=== PATIENT | female | born 1965 | race Caucasian/White ===

== ENCOUNTER → 2018-05-07 02:53 | Outpatient (RCR) | payer BC, SELFPAY ==
[2018-04-23] MEDS: Normal Saline Flush 10 ML SYR IVP (09:35)
[2018-04-23 09:56] LABS: Abs Immature Grans 0.02 k/cumm (0.0-0.09); Absolute Basophil Count 0.02 k/cumm (0.0-0.2); Absolute Eosinophil Count 0.26 k/cumm (0.0-0.7); Absolute Lymphocyte Count 0.63 k/cumm (1.2-3.4); Absolute Monocyte Count 1.17 k/cumm (0.11-0.7); Basophils % 0.3; HCT 30.8 % (36.0-46.0); HGB 10.1 g/dL (12.0-15.5); Immature Grans % 0.3; Lymphocytes % 9.7; Mean Corp. HGB Concentration 32.8 g/dL (32.0-36.0); Mean Corpuscular Hemoglobin 31.9 pg (27.0-33.0); Mean Corpuscular Volume 97.2 fL (80-95); Mean Platelet Volume 9.5 fL (8.0-11.0); Neutrophils % 67.7; Platelet Count 292 x1000/uL (130-400); RBC 3.17 m/cumm (4.00-5.20); RBC Distribution Width 15.5 % (11.7-14.6)
[2018-04-23 10:14] LABS: ALT 16 U/L (12-78); AST 11 U/L (15-37); Albumin 2.4 g/dL (3.4-5.0); Alkaline Phosphatase 76 U/L (46-116); Anion Gap 4.4 mmol/L (3-11); BUN 6 mg/dL (7-18); Bilirubin, Total 0.2 mg/dL (0.2-1.0); CO2 33.6 mmol/L (21.0-32.0); CREATININE 0.37 mg/dL (0.55-1.02); Calcium 8.2 mg/dL (8.5-10.1); Chloride 98 mmol/L (98-107); Glucose 106 mg/dL (70-100); Sodium 136 mmol/L (136-145); Total Protein 6.5 g/dL (6.4-8.2)
[2018-04-23 10:23] LABS: Potassium 2.8 mmol/L (3.5-5.1)
[2018-04-23 11:50] LABS: Magnesium 1.7 mg/dL (1.8-2.4)
[2018-04-30] MEDS: Normal Saline Flush 10 ML SYR IVP (09:36)
[2018-04-30 10:02] LABS: Abs Immature Grans 0.02 k/cumm (0.0-0.09); Absolute Basophil Count 0.01 k/cumm (0.0-0.2); Absolute Eosinophil Count 0.13 k/cumm (0.0-0.7); Absolute Lymphocyte Count 0.31 k/cumm (1.2-3.4); Absolute Monocyte Count 0.91 k/cumm (0.11-0.7); Absolute Neutrophil Count 2.73 k/cumm (1.2-6.7); Basophils % 0.2; Eosinophils % 3.2; HCT 34.4 % (36.0-46.0); HGB 11.2 g/dL (12.0-15.5); Immature Grans % 0.5; Lymphocytes % 7.5; Mean Corp. HGB Concentration 32.6 g/dL (32.0-36.0); Mean Corpuscular Hemoglobin 32.1 pg (27.0-33.0); Mean Corpuscular Volume 98.6 fL (80-95); Mean Platelet Volume 9.6 fL (8.0-11.0); Monocytes % 22.1; Neutrophils % 66.5; Platelet Count 283 x1000/uL (130-400); RBC 3.49 m/cumm (4.00-5.20); RBC Distribution Width 16.7 % (11.7-14.6); White Blood Cell Count 4.11 k/cumm (4.4-10.8)
[2018-04-30 10:13] LABS: ALT 21 U/L (12-78); AST 11 U/L (15-37); Albumin 2.3 g/dL (3.4-5.0); Alkaline Phosphatase 100 U/L (46-116); Anion Gap 4.8 mmol/L (3-11); BUN 6 mg/dL (7-18); Bilirubin, Total 0.2 mg/dL (0.2-1.0); CO2 34.2 mmol/L (21.0-32.0); CREATININE 0.36 mg/dL (0.55-1.02); Calcium 8.5 mg/dL (8.5-10.1); Chloride 96 mmol/L (98-107); Glucose 115 mg/dL (70-100); Potassium 3.8 mmol/L (3.5-5.1); Sodium 135 mmol/L (136-145); Total Protein 6.6 g/dL (6.4-8.2)
[2018-05-07 07:59] LABS: Abs Immature Grans 0.01 k/cumm (0.0-0.09); Absolute Basophil Count 0.03 k/cumm (0.0-0.2); Absolute Eosinophil Count 0.43 k/cumm (0.0-0.7); Absolute Lymphocyte Count 0.25 k/cumm (1.2-3.4); Absolute Monocyte Count 1.06 k/cumm (0.11-0.7); Absolute Neutrophil Count 3.32 k/cumm (1.2-6.7); Basophils % 0.6; Eosinophils % 8.4; HGB 12.1 g/dL (12.0-15.5); Immature Grans % 0.2; Lymphocytes % 4.9; Mean Corp. HGB Concentration 32.7 g/dL (32.0-36.0); Mean Corpuscular Hemoglobin 33.3 pg (27.0-33.0); Mean Corpuscular Volume 101.9 fL (80-95); Mean Platelet Volume 9.8 fL (8.0-11.0); Monocytes % 20.8; Neutrophils % 65.1; Platelet Count 248 x1000/uL (130-400); RBC 3.63 m/cumm (4.00-5.20); RBC Distribution Width 19.6 % (11.7-14.6)
[2018-05-07 08:11] LABS: ALT 24 U/L (12-78); AST 11 U/L (15-37); Albumin 2.3 g/dL (3.4-5.0); Alkaline Phosphatase 111 U/L (46-116); Anion Gap 3.4 mmol/L (3-11); BUN 6 mg/dL (7-18); Bilirubin, Total 0.3 mg/dL (0.2-1.0); CO2 34.6 mmol/L (21.0-32.0); CREATININE 0.61 mg/dL (0.55-1.02); Calcium 8.3 mg/dL (8.5-10.1); Chloride 98 mmol/L (98-107); Glucose 153 mg/dL (70-100); Potassium 3.8 mmol/L (3.5-5.1); Sodium 136 mmol/L (136-145); Total Protein 6.3 g/dL (6.4-8.2)
[2018-05-07] MEDS: Normal Saline Flush 10 ML SYR IVP (09:41)
== END ==
LOC: INF 04-15 03:34
PROVIDERS: PCP Internal Medicine; Visit Provider Internal Medicine Hematology & Oncology
DX: C21.0 Malignant neoplasm of anus, unspecified (principal); Z45.2 Encounter for adjustment and management of vascular access device
CPT/HCPCS: 36592; 80053; 83735; 85025

== ENCOUNTER 2018-05-31 13:33 | Observation (INO) | payer BC, SELFPAY ==
[2018-05-31 13:13] VITALS: BP 113/80; PULSE 117; RESP 17; TEMP 37.2; O2SAT 90
[2018-05-31 13:31] VITALS: BP 113/80; PULSE 117; RESP 17; TEMP 37.2; O2SAT 90
[2018-05-31] MEDS: Normal Saline 1,000 ML 75 ML IV (14:44)
[2018-05-31] MEDS: Normal Saline Flush 10 ML SYR IVP ×2 (14:44→17:19)
[2018-05-31 15:55] VITALS: BP 143/79; PULSE 119; RESP 18; TEMP 37; O2SAT 88
[2018-05-31] MEDS: HYDROmorphone 4 MG TAB PO (16:15)
--- NOTE | 2018-05-31 16:15 | NS.NUTBLAN_ITS ---
TPN recommendations. Full assessment to follow. These recommendations are based on following my conversation with the RD at the [facility]. Ms. Ann is 68 and 50.5 kg. Her BMI is only 16 kg/m2 consistent with underweight. Recommend the following TPN solution to start. Also would recommend watching for refeeding syndrome as Ms. Ann has been eating only 500 calories per day or less for several weeks per her report and per RD at [facility]. Recommend: 2.0 liters of amino acid 4.25% in 10% dextrose over 24 hours. Also 250 ml of 20 % fat emulsion over 8 hours daily. Will follow up with full assessment and will monitor her progress and tolerance to PO and/or nutrition support. Thank you for the consult.
--- NOTE | 2018-05-31 17:45 | W.PM.HP.N ---
Date of service: 05/31/18 Time of Service: 17:45 Assessment and Plan (1) Malnourished: Current visit: Yes Status: Acute Secondary to loss of appetite, attributed to chemo, with poor po intake. Initiating TPN. Surgical and double corner cutter input appreciated. (2) Squamous cell carcinoma of rectum: Current visit: Yes Status: Acute Diagnosed or 03/2018, undergone treatment with Mitomycin and Capecitabine with concurrent radiation therapy. Completed course 05/25/2018. (3) Hypertension: Current visit: Yes Status: Chronic (4) Asthma: Current visit: Yes Status: Chronic Diagnosis in patient with daily and significant tobacco use - likely component of COPD as well. Continue home inhaler thereapy, duonebs prn. (5) Fibromyalgia: Current visit: Yes Status: Acute Noted. Continue Gabapentin. (6) DVT prophylaxis: Current visit: Yes Status: Acute SC Lovenox ordered but refused by patient. Risks explained in detail - patient is aware. History of Present Illness Narrative: 52-year-old woman with a past medical history significant for rectal Ca, asthma and fibromyalgia presents to to [facility] as a direct admission from [facility] for initiation of TPN. Mrs. Ann has a history of squamous cell CA of rectum. She was initiated on chemotherapy with concurrent radiation in early April of this year, and has undergone therapy with mitomycin C and oral capecitabine along with XRT. During this time she is noted a decrease in her oral intake secondary to a loss of appetite, along with a concurrent significant weight loss. Patient was referred for admission for initiation of TPN. She already has PICC line in place. Review of Systems Review of Systems Reported weight loss secondary to lack of appetite and decreased oral intake. Pertinent positives include chronic, unchanged, ongoing dyspnea with subjective wheezing that is expressed to be at baseline. No complaints of abdominal pain or constipation, although with a bout of constipation in the past and patient on chronic opiate therapy. All review of systems otherwise are essentially negative. [facility] Social History Smoking/Tobacco Use Status: Current every day Meds Home Medications Medication Instructions Recorded Confirmed Type albuterol sulfate 2 puff INHALATION Q6H PRN 05/31/18 05/31/18 History bisoprolol fumarate 5 mg PO DAILY 05/31/18 05/31/18 History budesonide 0.5 mg INHALATION BID 05/31/18 05/31/18 History gabapentin 300 mg PO TID 05/31/18 05/31/18 History hydrocortisone 1 applic TOPICAL BID 05/31/18 05/31/18 History hydromorphone 4 mg PO PRN PRN 05/31/18 05/31/18 History ipratropium-albuterol 3 ml INHALATION QID 05/31/18 05/31/18 History ketoconazole 1 applic TOPICAL BID 05/31/18 05/31/18 History lidocaine 1 applic TOPICAL BID 05/31/18 05/31/18 History loperamide 2 mg PO Q6H PRN PRN 05/31/18 05/31/18 History lorazepam 0.5 mg PO Q4H PRN PRN 05/31/18 05/31/18 History milnacipran 50 mg PO BID 05/31/18 05/31/18 History morphine 60 mg PO Q8H 05/31/18 05/31/18 History subeekop-fkcxdmdvnMc-flosnklcJ 1 applic TOPICAL BID 05/31/18 05/31/18 History [Neosporin (nxa-ovu-zuhrm)] ondansetron 8 mg PO TID PRN 05/31/18 05/31/18 History potassium chloride 20 meq PO DAILY 05/31/18 05/31/18 History prochlorperazine maleate 10 mg PO Q6H PRN PRN 05/31/18 05/31/18 History sennosides [senna] 8.6 mg PO BID PRN 05/31/18 05/31/18 History silver sulfadiazine 1 applic TOPICAL BID 05/31/18 05/31/18 History Allergies Allergy/AdvReac Type Severity Reaction Status Date / Time Latex, Natural Rubber Allergy Intermediate Hives Unverified 05/31/18 13:55 animal dander AdvReac Mild Other (See Unverified 05/31/18 13:55 Comment) perfume AdvReac Mild Other (See Unverified 05/31/18 13:55 Comment) pollen extracts AdvReac Mild Other (See Unverified 05/31/18 13:55 Comment) Exam Narrative Exam Narrative: General: Patient appears comfortable, sitting up in bed, AAOX3, NAD. Thin and malnurished. Neck: Supple CV: Regular, nontachycardic, S1S2, No rubs, murmurs, or gallops. Pulmonary: Clear to auscultation bilaterally, no crackles, or rhonchi. Minimal bibasilar wheezes noted. Abdomen: + Bowel Sounds, soft, nontender, nondistended Vascular: No lower extremity edema Neurologic: CN II-XII grossly intact. No focal deficits. Psych: Normal mood and affect.
--- NOTE | 2018-05-31 17:50 | HPE_ITS ---
Date of service: 05/31/18 Time of Service: 17:45 Assessment and Plan (1) Malnourished: Current visit: Yes Status: Acute Secondary to loss of appetite, attributed to chemo, with poor po intake. Initiating TPN. Surgical and hims clerk input appreciated. (2) Squamous cell carcinoma of rectum: Current visit: Yes Status: Acute Diagnosed or 03/2018, undergone treatment with Mitomycin and Capecitabine with concurrent radiation therapy. Completed course 05/25/2018. (3) Hypertension: Current visit: Yes Status: Chronic (4) Asthma: Current visit: Yes Status: Chronic Diagnosis in patient with daily and significant tobacco use - likely component of COPD as well. Continue home inhaler thereapy, duonebs prn. (5) Fibromyalgia: Current visit: Yes Status: Acute Noted. Continue Gabapentin. (6) DVT prophylaxis: Current visit: Yes Status: Acute SC Lovenox ordered but refused by patient. Risks explained in detail - patient is aware. History of Present Illness Narrative: 52-year-old woman with a past medical history significant for rectal Ca, asthma and fibromyalgia presents to to [facility] as a direct admission from [facility] for initiation of TPN. Mrs. Ann has a history of squamous cell CA of rectum. She was initiated on chemotherapy with concurrent radiation in early April of this year, and has undergone therapy with mitomycin C and oral capecitabine along with XRT. During this time she is noted a decrease in her oral intake secondary to a loss of appetite, along with a concurrent significant weight loss. Patient was referred for admission for initiation of TPN. She already has PICC line in place. Review of Systems Review of Systems Reported weight loss secondary to lack of appetite and decreased oral intake. Pertinent positives include chronic, unchanged, ongoing dyspnea with subjective wheezing that is expressed to be at baseline. No complaints of abdominal pain or constipation, although with a bout of constipation in the past and patient on chronic opiate therapy. All review of systems otherwise are essentially negative. [facility] Social History Smoking/Tobacco Use Status: Current every day Meds Home Medications Medication Instructions Recorded Confirmed Type albuterol sulfate 2 puff INHALATION Q6H PRN 05/31/18 05/31/18 History bisoprolol fumarate 5 mg PO DAILY 05/31/18 05/31/18 History budesonide 0.5 mg INHALATION BID 05/31/18 05/31/18 History gabapentin 300 mg PO TID 05/31/18 05/31/18 History hydrocortisone 1 applic TOPICAL BID 05/31/18 05/31/18 History hydromorphone 4 mg PO PRN PRN 05/31/18 05/31/18 History ipratropium-albuterol 3 ml INHALATION QID 05/31/18 05/31/18 History ketoconazole 1 applic TOPICAL BID 05/31/18 05/31/18 History lidocaine 1 applic TOPICAL BID 05/31/18 05/31/18 History loperamide 2 mg PO Q6H PRN PRN 05/31/18 05/31/18 History lorazepam 0.5 mg PO Q4H PRN PRN 05/31/18 05/31/18 History milnacipran 50 mg PO BID 05/31/18 05/31/18 History morphine 60 mg PO Q8H 05/31/18 05/31/18 History wmgdhsho-xdhehioddCo-vjwmihlrU 1 applic TOPICAL BID 05/31/18 05/31/18 History [Neosporin (smm-qjo-cfzdu)] ondansetron 8 mg PO TID PRN 05/31/18 05/31/18 History potassium chloride 20 meq PO DAILY 05/31/18 05/31/18 History prochlorperazine maleate 10 mg PO Q6H PRN PRN 05/31/18 05/31/18 History sennosides [senna] 8.6 mg PO BID PRN 05/31/18 05/31/18 History silver sulfadiazine 1 applic TOPICAL BID 05/31/18 05/31/18 History Allergies Allergy/AdvReac Type Severity Reaction Status Date / Time Latex, Natural Rubber Allergy Intermediate Hives Unverified 05/31/18 13:55 animal dander AdvReac Mild Other (See Unverified 05/31/18 13:55 Comment) perfume AdvReac Mild Other (See Unverified 05/31/18 13:55 Comment) pollen extracts AdvReac Mild Other (See Unverified 05/31/18 13:55 Comment) Exam Narrative Exam Narrative: General: Patient appears comfortable, sitting up in bed, AAOX3, NAD. Thin and malnurished. Neck: Supple CV: Regular, nontachycardic, S1S2, No rubs, murmurs, or gallops. Pulmonary: Clear to auscultation bilaterally, no crackles, or rhonchi. Minimal bibasilar wheezes noted. Abdomen: + Bowel Sounds, soft, nontender, nondistended Vascular: No lower extremity edema Neurologic: CN II-XII grossly intact. No focal deficits. Psych: Normal mood and affect.
[2018-05-31] MEDS: Enoxaparin 40 MG/0.4 ML SYR SC (18:44)
[2018-05-31] MEDS: Gabapentin 300 MG CAP PO (20:09)
[2018-05-31] MEDS: Albuterol/Ipratropium 3 ML UPD VIAL IH (20:10)
[2018-05-31] MEDS: Budesonide 0.5 MG/2 ML UPD VIAL IH (20:10)
--- NOTE | 2018-05-31 20:15 | NUR.NOTE ---
Nursing Note: Patient refused all PM creams, states that she has her own at home, and states that they have to be mixed a special way. RN attempted to educate patient and , however patient still declines.
[2018-05-31 21:04] VITALS: BP 123/79; PULSE 96; RESP 20; TEMP 36; O2SAT 90
[2018-06-01] VITALS (11 sets, daily range): BP systolic 110–158; BP diastolic 74–90; PULSE 97–110; RESP 1–22; TEMP 36–37.1; O2SAT 83–98
[2018-06-01] MEDS: HYDROmorphone 4 MG TAB PO ×3 (03:04→14:34)
[2018-06-01 07:32] LABS: Abs Immature Grans 0.01 k/cumm (0.0-0.09); Absolute Basophil Count 0.01 k/cumm (0.0-0.2); Absolute Eosinophil Count 0.01 k/cumm (0.0-0.7); Absolute Lymphocyte Count 0.34 k/cumm (1.2-3.4); Absolute Monocyte Count 0.82 k/cumm (0.11-0.7); Absolute Neutrophil Count 3.02 k/cumm (1.2-6.7); Basophils % 0.2; Eosinophils % 0.2; HCT 32.7 % (36.0-46.0); HGB 11.2 g/dL (12.0-15.5); Immature Grans % 0.2; Lymphocytes % 8.1; Mean Corp. HGB Concentration 34.3 g/dL (32.0-36.0); Mean Corpuscular Hemoglobin 34.9 pg (27.0-33.0); Mean Corpuscular Volume 101.9 fL (80-95); Mean Platelet Volume 10.4 fL (8.0-11.0); Monocytes % 19.5; Neutrophils % 71.8; Platelet Count 110 x1000/uL (130-400); RBC 3.21 m/cumm (4.00-5.20); RBC Distribution Width 21.1 % (11.7-14.6); White Blood Cell Count 4.21 k/cumm (4.4-10.8)
[2018-06-01 07:42] LABS: INR 1.1 (1.0-3.5); Prothrombin Time 10.9 sec (9.3-10.8)
[2018-06-01] MEDS: Budesonide 0.5 MG/2 ML UPD VIAL IH ×2 (07:43→19:22)
[2018-06-01] MEDS: Albuterol/Ipratropium 3 ML UPD VIAL IH ×4 (07:43→19:22)
[2018-06-01 07:58] LABS: ALT 20 U/L (12-78); AST 11 U/L (15-37); Albumin 1.8 g/dL (3.4-5.0); Alkaline Phosphatase 95 U/L (46-116); Anion Gap 2.1 mmol/L (3-11); BUN 17 mg/dL (7-18); Bilirubin, Total 0.2 mg/dL (0.2-1.0); CO2 35.9 mmol/L (21.0-32.0); CREATININE 0.35 mg/dL (0.55-1.02); Calcium 8.1 mg/dL (8.5-10.1); Chloride 97 mmol/L (98-107); Glucose 104 mg/dL (70-100); Magnesium 1.8 mg/dL (1.8-2.4); PHOSPHORUS 2.7 mg/dL (2.6-4.7); Sodium 135 mmol/L (136-145); Total Protein 5.6 g/dL (6.4-8.2)
[2018-06-01] MEDS: Bisoprolol 5 MG TAB PO (08:00)
[2018-06-01] MEDS: Gabapentin 300 MG CAP PO ×2 (08:00→14:34)
[2018-06-01] MEDS: Potassium Chloride 10 MEQ TABCR 20 MEQ PO (08:02)
--- NOTE | 2018-06-01 08:10 | NUR.NOTE ---
Nursing Note: Pt offered 5 different ointments and creams that were ordered on NOV. She declined them all stating she can't get them right now at home. Nursing explained that we have them here in house and as long as they were ordered on her discharge home medication list she would be able to bring them home with her. Pt refused stating she can't deal with it right now. Nursing asked Pt to let staff know if she changed her mind about the medications.
[2018-06-01] MEDS: Magnesium Oxide 400 MG TAB PO (10:06)
[2018-06-01] MEDS: Insulin Aspart 300 UNITS/3 ML PEN SC ×2 (12:27→18:02)
--- NOTE | 2018-06-01 14:05 | PDOC.CMIN ---
Care Management Initial Assess REASON FOR HOSPITALIZATION:: Malnutrition PAST MEDICAL HISTORY/PAST SURGICAL HISTORY:: DVT prophylaxis, fibromyalgia, asthma, hypertension, squamous cell carcinoma of the rectum, current everyday smoker PREVIOUS FUNCTIONAL STATUS/SOCIAL/FAMILY SUPPORTS:: Katarina resides with her , Dat in [place], [place]. She recently completed chemo and radiation at [facility] and has a follow up appointment with Dr. He tomorrow around noon. CM notified first officer at [facility]; Delmy who reported Katarina's appointment was for a skin check due to radiation, and that this information could be relayed to MED/SURG MD. Delmy reported she would cancel Katarina's appointment for tomorrow. CURRENT FUNCTIONAL STATUS:: Katarina was lying in bed, her at her bedside when CM met with her. She was reserved, but pleasant in interaction. ADVANCE DIRECTIVES:: None on file. Has patient been provided with information about the portal?: No Did the patient sign up for the portal?: No CODE STATUS:: Full Code INSURANCE COVERAGE / FINANCIAL ISSUES:: BC Other CURRENT HOME/COMMUNITY SERVICES/EQUIPMENT:: [facility]: former chemo and radiation. O2, PICC line and home health RN through [facility]. PRIMARY CARE PHYSICIAN:: Mo Hendrickson POTENTIAL DISCHARGE NEEDS:: Communication with [facility]. Coordination with [facility] of TPN supplies, [facility]: [facility]-new orders and resumption of RN. [facility] notification of inpatient status. PATIENT/FAMILY EDUCATION NEEDS:: Review of discharge instructions, discussion around needs; review of DME providers and process for [facility] formula for TPN. ANTICIPATED BARRIERS TO DISCHARGE:: Coordination of services needed upon discharge. TRANSPORTATION:: Via private vehicle with her . PLAN:: Katarina will return home when ready per . She will follow up with her outpatient providers and have new orders for VNA/RN with new orders for TPN supplies through [facility]-coordinated by and this telegraphic typewriter mechanic. PETE faxed referral to Tyesha at [facility]: F# . PETE will continue to support discharge planning considerations.
[2018-06-01] MEDS: Enoxaparin 40 MG/0.4 ML SYR SC (14:35)
--- NOTE | 2018-06-01 15:00 | INITIAL_ITS ---
Care Management Initial Assess REASON FOR HOSPITALIZATION:: Malnutrition PAST MEDICAL HISTORY/PAST SURGICAL HISTORY:: DVT prophylaxis, fibromyalgia, asthma, hypertension, squamous cell carcinoma of the rectum, current everyday smoker PREVIOUS FUNCTIONAL STATUS/SOCIAL/FAMILY SUPPORTS:: Katarina resides with her , Dat in [place], [place]. She recently completed chemo and radiation at [facility] and has a follow up appointment with Dr. He tomorrow around noon. CM notified probation officer at [facility]; Delmy who reported Katarina's appointment was for a skin check due to radiation, and that this information could be relayed to MED/SURG MD. Delmy reported she would cancel Katarina's appointment for tomorrow. CURRENT FUNCTIONAL STATUS:: Katarina was lying in bed, her at her bedside when CM met with her. She was reserved, but pleasant in interaction. ADVANCE DIRECTIVES:: None on file. Has patient been provided with information about the portal?: No Did the patient sign up for the portal?: No CODE STATUS:: Full Code INSURANCE COVERAGE / FINANCIAL ISSUES:: BC Other CURRENT HOME/COMMUNITY SERVICES/EQUIPMENT:: [facility]: former chemo and radiation. O2 , PICC line and home health RN through [facility]. PRIMARY CARE PHYSICIAN:: Mo Hendrickson POTENTIAL DISCHARGE NEEDS:: Communication with [facility]. Coordination with [facility] of TPN supplies, [facility]: [facility]-new orders and resumption of RN. [facility] notification of inpatient status. PATIENT/FAMILY EDUCATION NEEDS:: Review of discharge instructions, discussion around needs; review of DME providers and process for [facility] formula for TPN. ANTICIPATED BARRIERS TO DISCHARGE:: Coordination of services needed upon discharge. TRANSPORTATION:: Via private vehicle with her . PLAN:: Katarina will return home when ready per . She will follow up with her outpatient providers and have new orders for VNA/RN with new orders for TPN supplies through [facility]-coordinated by and this property underwriter. PETE faxed referral to Tyesha at [facility]: F# . PETE will continue to support discharge planning considerations.
--- NOTE | 2018-06-01 17:01 | W.PM.PROGNOT ---
Date of service: 06/01/18 Time of Service: 17:02 Assessment and Plan (1) Malnourished: Current visit: Yes Status: Acute Secondary to loss of appetite, attributed to chemo, with poor po intake. Initiating TPN. Surgical and host/hostess head input appreciated. (2) Squamous cell carcinoma of rectum: Current visit: Yes Status: Acute Diagnosed or 03/2018, undergone treatment with Mitomycin and Capecitabine with concurrent radiation therapy. Completed course 05/25/2018. (3) Hypertension: Current visit: Yes Status: Chronic (4) Asthma: Current visit: Yes Status: Chronic Diagnosis in patient with daily and significant tobacco use - likely component of COPD as well. Patient with wheezing and hypoxia, reportedly chronic by both patient and . Continue home inhaler thereapy, duonebs prn, and start oral steroids. May need home oxygen. (5) Fibromyalgia: Current visit: Yes Status: Acute Noted. Continue Gabapentin. (6) DVT prophylaxis: Current visit: Yes Status: Acute SC Lovenox. Subjective Interval history since last seen: 52-year-old woman with a past medical history significant for Anal Ca, asthma and fibromyalgia presents to to [facility] as a direct admission from [facility] for initiation of TPN. Mrs. Ann has a history of squamous cell CA of the rectum. She was initiated on chemotherapy with concurrent radiation in early April of this year, and has undergone therapy with mitomycin C and oral capecitabine along with XRT. During this time she is noted a decrease in her oral intake secondary to a loss of appetite, along with a concurrent significant weight loss. Patient was referred for admission for initiation of TPN. She already has PICC line in place. She was noted to be hypoxic by vitals - her states that this is her norm, and related to her underlying 'asthma'. No other events reported. She remains afebrile. Exam Narrative Exam Narrative: General: Patient appears comfortable, sitting up in bed, AAOX3, NAD. Thin and malnurished. Neck: Supple CV: Regular, nontachycardic, S1S2, No rubs, murmurs, or gallops. Pulmonary: Clear to auscultation bilaterally, no crackles, or rhonchi. Mild but now diffuse wheezing noted. Abdomen: + Bowel Sounds, soft, nontender, nondistended Vascular: No lower extremity edema Psych: Normal mood and affect. Objective Objective Clinical Data: Abnormal lab results 06/01/18 06/01/18 06/01/18 Range/Units 07:05 07:05 07:05 WBC 4.21 L (4.4-10.8) k/cumm RBC 3.21 L (4.00-5.20) m/cumm Hgb 11.2 L (12.0-15.5) g/dL Hct 32.7 L (36.0-46.0) % MCV 101.9 H (80-95) fL MCH 34.9 H (27.0-33.0) pg RDW 21.1 H (11.7-14.6) % Plt Count 110 L (130-400) x1000/uL Absolute Lymphocytes 0.34 L (1.2-3.4) k/cumm Absolute Monocytes 0.82 H (0.11-0.7) k/cumm PT 10.9 H (9.3-10.8) sec Sodium 135 L (136-145) mmol/L Chloride 97 L (98-107) mmol/L Carbon Dioxide 35.9 H (21.0-32.0) mmol/L Anion Gap 2.1 L (3-11) mmol/L Creatinine 0.35 L (0.55-1.02) mg/dL Glucose 104 H (70-100) mg/dL Calcium 8.1 L (8.5-10.1) mg/dL AST 11 L (15-37) U/L Total Protein 5.6 L (6.4-8.2) g/dL Albumin 1.8 L (3.4-5.0) g/dL Vital Signs Temperature 37.1 C 06/01/18 16:13 Temperature Source Tympanic 06/01/18 16:13 Pulse 97 H 06/01/18 16:13 Pulse Rhythm Regular 06/01/18 08:13 Respiratory Rate 17 06/01/18 16:13 Respiratory Effort Non-Labored 06/01/18 08:13 Respiratory Depth Normal 06/01/18 08:13 Respiratory Pattern Normal 06/01/18 08:13 Blood Pressure 110/74 06/01/18 16:13 Pulse Oximetry 96 06/01/18 16:13 Oxygen Delivery Method Nasal Cannula 06/01/18 16:13 Oxygen Flow Rate 2 06/01/18 16:13 Pain Level 5 06/01/18 14:34 Comment 06/01/18 03:07 Intake & Output 05/31/18 06/01/18 06/01/18 23:59 11:59 23:59 Intake Total 1242.5 / 1242.5 120 / 120 1031 / 1031 Output Total 1150 / 1150 350 / 350 Balance 92.5 / 92.5 -230 / -230 1031 / 1031 Weight 50.5 kg Intake: IV 232.5 / 232.5 1031 / 1031 Oral 1010 / 1010 120 / 120 Output: Urine 1150 / 1150 350 / 350 Other: Urine Color Straw Yellow Urine Appearance Clear Clear Urine Odor Normal Comment Void x1 in the toilet. Voiding Methods Toilet Toilet Toilet Laboratory Results WBC 4.21 k/cumm (4.4-10.8) L 06/01/18 07:05 RBC 3.21 m/cumm (4.00-5.20) L 06/01/18 07:05 Hgb 11.2 g/dL (12.0-15.5) L 06/01/18 07:05 Hct 32.7 % (36.0-46.0) L 06/01/18 07:05 MCV 101.9 fL (80-95) H 06/01/18 07:05 MCH 34.9 pg (27.0-33.0) H 06/01/18 07:05 MCHC 34.3 g/dL (32.0-36.0) 06/01/18 07:05 RDW 21.1 % (11.7-14.6) H 06/01/18 07:05 Plt Count 110 x1000/uL (130-400) L 06/01/18 07:05 MPV 10.4 fL (8.0-11.0) 06/01/18 07:05 Immature Gran % 0.2 06/01/18 07:05 Neutrophils % 71.8 06/01/18 07:05 Lymphocytes % 8.1 06/01/18 07:05 Monocytes % 19.5 06/01/18 07:05 Eosinophils % 0.2 06/01/18 07:05 Basophils % 0.2 06/01/18 07:05 Absolute Neutrophils 3.02 k/cumm (1.2-6.7) 06/01/18 07:05 Absolute Lymphocytes 0.34 k/cumm (1.2-3.4) L 06/01/18 07:05 Absolute Monocytes 0.82 k/cumm (0.11-0.7) H 06/01/18 07:05 Absolute Eosinophils 0.01 k/cumm (0.0-0.7) 06/01/18 07:05 Absolute Basophils 0.01 k/cumm (0.0-0.2) 06/01/18 07:05 PT 10.9 sec (9.3-10.8) H 06/01/18 07:05 INR 1.1 (1.0-3.5) 06/01/18 07:05 Sodium 135 mmol/L (136-145) L 06/01/18 07:05 Potassium 4.0 mmol/L (3.5-5.1) 06/01/18 07:05 Chloride 97 mmol/L (98-107) L 06/01/18 07:05 Carbon Dioxide 35.9 mmol/L (21.0-32.0) H 06/01/18 07:05 Anion Gap 2.1 mmol/L (3-11) L 06/01/18 07:05 BUN 17 mg/dL (7-18) 06/01/18 07:05 Creatinine 0.35 mg/dL (0.55-1.02) L 06/01/18 07:05 Estimated GFR/1.73 m2 >= 60.00 (mL/min/1.73m2) 06/01/18 07:05 Glucose 104 mg/dL (70-100) H 06/01/18 07:05 Calcium 8.1 mg/dL (8.5-10.1) L 06/01/18 07:05 Phosphorus 2.7 mg/dL (2.6-4.7) 06/01/18 07:05 Magnesium 1.8 mg/dL (1.8-2.4) 06/01/18 07:05 Total Bilirubin 0.2 mg/dL (0.2-1.0) 06/01/18 07:05 AST 11 U/L (15-37) L 06/01/18 07:05 ALT 20 U/L (12-78) 06/01/18 07:05 Alkaline Phosphatase 95 U/L (46-116) 06/01/18 07:05 Total Protein 5.6 g/dL (6.4-8.2) L 06/01/18 07:05 Albumin 1.8 g/dL (3.4-5.0) L 06/01/18 07:05
--- NOTE | 2018-06-01 17:05 | PGE_ITS ---
Date of service: 06/01/18 Time of Service: 17:02 Assessment and Plan (1) Malnourished: Current visit: Yes Status: Acute Secondary to loss of appetite, attributed to chemo, with poor po intake. Initiating TPN. Surgical and production consultant input appreciated. (2) Squamous cell carcinoma of rectum: Current visit: Yes Status: Acute Diagnosed or 03/2018, undergone treatment with Mitomycin and Capecitabine with concurrent radiation therapy. Completed course 05/25/2018. (3) Hypertension: Current visit: Yes Status: Chronic (4) Asthma: Current visit: Yes Status: Chronic Diagnosis in patient with daily and significant tobacco use - likely component of COPD as well. Patient with wheezing and hypoxia, reportedly chronic by both patient and . Continue home inhaler thereapy, duonebs prn , and start oral steroids. May need home oxygen. (5) Fibromyalgia: Current visit: Yes Status: Acute Noted. Continue Gabapentin. (6) DVT prophylaxis: Current visit: Yes Status: Acute SC Lovenox. Subjective Interval history since last seen: 52-year-old woman with a past medical history significant for Anal Ca, asthma and fibromyalgia presents to to [facility] as a direct admission from [facility] for initiation of TPN. Mrs. Ann has a history of squamous cell CA of the rectum. She was initiated on chemotherapy with concurrent radiation in early April of this year , and has undergone therapy with mitomycin C and oral capecitabine along with XRT. During this time she is noted a decrease in her oral intake secondary to a loss of appetite, along with a concurrent significant weight loss. Patient was referred for admission for initiation of TPN. She already has PICC line in place. She was noted to be hypoxic by vitals - her states that this is her norm , and related to her underlying 'asthma'. No other events reported. She remains afebrile. Exam Narrative Exam Narrative: General: Patient appears comfortable, sitting up in bed, AAOX3, NAD. Thin and malnurished. Neck: Supple CV: Regular, nontachycardic, S1S2, No rubs, murmurs, or gallops. Pulmonary: Clear to auscultation bilaterally, no crackles, or rhonchi. Mild but now diffuse wheezing noted. Abdomen: + Bowel Sounds, soft, nontender, nondistended Vascular: No lower extremity edema Psych: Normal mood and affect. Objective Objective Clinical Data: Abnormal lab results 06/01/18 06/01/18 06/01/18 Range/Units 07:05 07:05 07:05 WBC 4.21 L (4.4-10.8) k/cumm RBC 3.21 L (4.00-5.20) m/cumm Hgb 11.2 L (12.0-15.5) g/dL Hct 32.7 L (36.0-46.0) % MCV 101.9 H (80-95) fL MCH 34.9 H (27.0-33.0) pg RDW 21.1 H (11.7-14.6) % Plt Count 110 L (130-400) x1000/uL Absolute Lymphocytes 0.34 L (1.2-3.4) k/cumm Absolute Monocytes 0.82 H (0.11-0.7) k/cumm PT 10.9 H (9.3-10.8) sec Sodium 135 L (136-145) mmol/L Chloride 97 L (98-107) mmol/L Carbon Dioxide 35.9 H (21.0-32.0) mmol/L Anion Gap 2.1 L (3-11) mmol/L Creatinine 0.35 L (0.55-1.02) mg/dL Glucose 104 H (70-100) mg/dL Calcium 8.1 L (8.5-10.1) mg/dL AST 11 L (15-37) U/L Total Protein 5.6 L (6.4-8.2) g/dL Albumin 1.8 L (3.4-5.0) g/dL Vital Signs Temperature 37.1 C 06/01/18 16:13 Temperature Source Tympanic 06/01/18 16:13 Pulse 97 H 06/01/18 16:13 Pulse Rhythm Regular 06/01/18 08:13 Respiratory Rate 17 06/01/18 16:13 Respiratory Effort Non-Labored 06/01/18 08:13 Respiratory Depth Normal 06/01/18 08:13 Respiratory Pattern Normal 06/01/18 08:13 Blood Pressure 110/74 06/01/18 16:13 Pulse Oximetry 96 06/01/18 16:13 Oxygen Delivery Method Nasal Cannula 06/01/18 16:13 Oxygen Flow Rate 2 06/01/18 16:13 Pain Level 5 06/01/18 14:34 Comment 06/01/18 03:07 Intake & Output 05/31/18 06/01/18 06/01/18 23:59 11:59 23:59 Intake Total 1242.5 / 1242.5 120 / 120 1031 / 1031 Output Total 1150 / 1150 350 / 350 Balance 92.5 / 92.5 -230 / -230 1031 / 1031 Weight 50.5 kg Intake: IV 232.5 / 232.5 1031 / 1031 Oral 1010 / 1010 120 / 120 Output: Urine 1150 / 1150 350 / 350 Other: Urine Color Straw Yellow Urine Appearance Clear Clear Urine Odor Normal Comment Void x1 in the toilet. Voiding Methods Toilet Toilet Toilet Laboratory Results WBC 4.21 k/cumm (4.4-10.8) L 06/01/18 07:05 RBC 3.21 m/cumm (4.00-5.20) L 06/01/18 07:05 Hgb 11.2 g/dL (12.0-15.5) L 06/01/18 07:05 Hct 32.7 % (36.0-46.0) L 06/01/18 07:05 MCV 101.9 fL (80-95) H 06/01/18 07:05 MCH 34.9 pg (27.0-33.0) H 06/01/18 07:05 MCHC 34.3 g/dL (32.0-36.0) 06/01/18 07:05 RDW 21.1 % (11.7-14.6) H 06/01/18 07:05 Plt Count 110 x1000/uL (130-400) L 06/01/18 07:05 MPV 10.4 fL (8.0-11.0) 06/01/18 07:05 Immature Gran % 0.2 06/01/18 07:05 Neutrophils % 71.8 06/01/18 07:05 Lymphocytes % 8.1 06/01/18 07:05 Monocytes % 19.5 06/01/18 07:05 Eosinophils % 0.2 06/01/18 07:05 Basophils % 0.2 06/01/18 07:05 Absolute Neutrophils 3.02 k/cumm (1.2-6.7) 06/01/18 07:05 Absolute Lymphocytes 0.34 k/cumm (1.2-3.4) L 06/01/18 07:05 Absolute Monocytes 0.82 k/cumm (0.11-0.7) H 06/01/18 07:05 Absolute Eosinophils 0.01 k/cumm (0.0-0.7) 06/01/18 07:05 Absolute Basophils 0.01 k/cumm (0.0-0.2) 06/01/18 07:05 PT 10.9 sec (9.3-10.8) H 06/01/18 07:05 INR 1.1 (1.0-3.5) 06/01/18 07:05 Sodium 135 mmol/L (136-145) L 06/01/18 07:05 Potassium 4.0 mmol/L (3.5-5.1) 06/01/18 07:05 Chloride 97 mmol/L (98-107) L 06/01/18 07:05 Carbon Dioxide 35.9 mmol/L (21.0-32.0) H 06/01/18 07:05 Anion Gap 2.1 mmol/L (3-11) L 06/01/18 07:05 BUN 17 mg/dL (7-18) 06/01/18 07:05 Creatinine 0.35 mg/dL (0.55-1.02) L 06/01/18 07:05 Estimated GFR/1.73 m2 >= 60.00 (mL/min/1.73m2) 06/01/18 07:05 Glucose 104 mg/dL (70-100) H 06/01/18 07:05 Calcium 8.1 mg/dL (8.5-10.1) L 06/01/18 07:05 Phosphorus 2.7 mg/dL (2.6-4.7) 06/01/18 07:05 Magnesium 1.8 mg/dL (1.8-2.4) 06/01/18 07:05 Total Bilirubin 0.2 mg/dL (0.2-1.0) 06/01/18 07:05 AST 11 U/L (15-37) L 06/01/18 07:05 ALT 20 U/L (12-78) 06/01/18 07:05 Alkaline Phosphatase 95 U/L (46-116) 06/01/18 07:05 Total Protein 5.6 g/dL (6.4-8.2) L 06/01/18 07:05 Albumin 1.8 g/dL (3.4-5.0) L 06/01/18 07:05
[2018-06-01] MEDS: Ondansetron O.D.T. 4 MG TABEF 8 MG PO (18:02)
[2018-06-01] MEDS: predniSONE 20 MG TAB 40 MG PO (19:21)
[2018-06-01] MEDS: Gabapentin 300 MG CAP 600 MG PO (19:21)
[2018-06-02] MEDS: Insulin Aspart 300 UNITS/3 ML PEN SC ×3 (00:42→12:10)
[2018-06-02 07:10] VITALS: BP 130/75; PULSE 106; RESP 20; TEMP 36.5; O2SAT 93
[2018-06-02 07:13] LABS: Absolute Lymphocyte Count 0.11 k/cumm (1.2-3.4); Absolute Monocyte Count 0.18 k/cumm (0.11-0.7); Absolute Neutrophil Count 1.83 k/cumm (1.2-6.7); HGB 11.2 g/dL (12.0-15.5); Lymphocytes % 5.2; Mean Corp. HGB Concentration 32.9 g/dL (32.0-36.0); Mean Corpuscular Hemoglobin 33.8 pg (27.0-33.0); Mean Corpuscular Volume 102.7 fL (80-95); Monocytes % 8.5; Neutrophils % 86.3; Platelet Count 103 x1000/uL (130-400); RBC 3.31 m/cumm (4.00-5.20); RBC Distribution Width 21.3 % (11.7-14.6); White Blood Cell Count 2.12 k/cumm (4.4-10.8)
[2018-06-02 07:25] LABS: ALT 20 U/L (12-78); AST 11 U/L (15-37); Albumin 1.9 g/dL (3.4-5.0); Alkaline Phosphatase 102 U/L (46-116); Anion Gap -0.5 mmol/L (3-11); BUN 19 mg/dL (7-18); Bilirubin, Total 0.2 mg/dL (0.2-1.0); CO2 37.5 mmol/L (21.0-32.0); Chloride 95 mmol/L (98-107); Glucose 158 mg/dL (70-100); Magnesium 1.9 mg/dL (1.8-2.4); Potassium 4.2 mmol/L (3.5-5.1); Sodium 132 mmol/L (136-145); Total Protein 5.9 g/dL (6.4-8.2)
[2018-06-02 07:41] LABS: Anisocytosis 2+; Diff Comment RBC Morph Reviewed
[2018-06-02 08:20] VITALS: O2SAT 95
[2018-06-02 08:22] VITALS: RESP 8; O2SAT 95
[2018-06-02] MEDS: Albuterol/Ipratropium 3 ML UPD VIAL IH ×3 (08:22→17:14)
[2018-06-02] MEDS: Budesonide 0.5 MG/2 ML UPD VIAL IH (08:23)
[2018-06-02] MEDS: HYDROmorphone 4 MG TAB PO ×2 (08:37→15:52)
[2018-06-02] MEDS: predniSONE 20 MG TAB 40 MG PO (08:38)
[2018-06-02] MEDS: Bisoprolol 5 MG TAB PO (08:38)
[2018-06-02] MEDS: Gabapentin 300 MG CAP 600 MG PO ×2 (09:03→14:36)
[2018-06-02 09:56] LABS: Prealbumin 5 mg/dL (20-40)
--- NOTE | 2018-06-02 10:05 | PDOC.CMDIS ---
LACE Index Scoring Tool - Questions: Length of Stay (in days): 3 Acuity (Admit via E.D.?): Yes Comorbidities: Any Tumor E.D. Visits: 1 - Answers: Total Score: 9 Risk of Readmission: Low Risk Care Management Discharge Reason for Hospitalization: Malnutrition Discharge Plan: Katarina will return home when ready per MD. She will follow up with her community providers and [facility], home O2, and have new orders for TPN coordinated through [facility]. CM faxed orders and supported documentation and completion with NutritionMD and Hannah of [facility]: P#[phone], F#[phone]. Katarina will transport via private vehicle with her , Dat. PETE spoke with Sandi at the [facility] who reported Katarina would be the first appointment of the day, between [id number] on 06/03/18. CM reviewed discharge plan with Dat Bray MD and RN, Katarina will discharge after her TPN has completed for today and [facility] will deliver her formula between [id number] this evening. Patient/Family Education Needs: Review of DME providers, process for new services including [facility] coordination. Review of discharge instructions, discuss Ask Me Three. Services Needed at Discharge: Home Health Care Services ([facility]: RN), Infusion Therapy ([facility] ), Oxygen Therapy ([facility])
--- NOTE | 2018-06-02 10:12 | CMDISCH_ITS ---
LACE Index Scoring Tool - Questions: Length of Stay (in days): 3 Acuity (Admit via E.D.?): Yes Comorbidities: Any Tumor E.D. Visits: 1 - Answers: Total Score: 9 Risk of Readmission: Low Risk Care Management Discharge Reason for Hospitalization: Malnutrition Discharge Plan: Katarina will return home when ready per MD. She will follow up with her community providers and [facility], home O2, and have new orders for TPN coordinated through [facility]. CM faxed orders and supported documentation and completion with Nutrition MD and Hannah of [facility]: P#[phone], F#[phone]. Katarina will transport via private vehicle with her , Dat. PETE spoke with Sandi at the [facility] who reported Katarina would be the first appointment of the day, between [id number] on 06/03/18. CM reviewed discharge plan with Dat Bray MD and RN, Katarina will discharge after her TPN has completed for today and [facility] will deliver her formula between [id number] this evening. Patient/Family Education Needs: Review of DME providers, process for new services including [facility] coordination. Review of discharge instructions, discuss Ask Me Three. Services Needed at Discharge: Home Health Care Services ([facility]: RN) , Infusion Therapy ([facility] ), Oxygen Therapy (Res[facility])
[2018-06-02] MEDS: Lidocaine 4% Cream 5 GM TUBE TP (12:11)
[2018-06-02] MEDS: Hydrocortisone 1% CR 30 GM TUBE TP (12:12)
[2018-06-02] MEDS: Ketoconazole 2% CREAM 15 GM TUBE TP (12:23)
--- NOTE | 2018-06-02 14:56 | CHAPLAIN ---
Katarina was sitting up in bed when I visited. She was quiet and did not seem interested in further conversation. I offered support and let her know how to reach me.
--- NOTE | 2018-06-02 15:12 | NUR.NOTE ---
Nursing Note: Pt's radiation site assessed, no s/sx of infection noted. Upper thighs, A&P have radiation newell present, redness noted, skin peeling noted. Area painful to touch. Rectum and vaginal area also have radiation newell, swelling noted. No warmth or oozing noted to site.
--- NOTE | 2018-06-02 16:15 | DSE_ITS ---
Date of service: 06/02/18 Time of Service: 16:09 DS: Diagnosis Discharge Diagnosis (1) Malnourished: Status: Acute (2) Squamous cell carcinoma of rectum: Status: Acute (3) Asthma: Status: Chronic Discharge Plan Disposition Patient Disposition: HOME W/HOME HEALTH SERVICE Condition: Stable Discharge Details Reason For Visit: MALNUTRITION Admit Date/Time: 05/31/18 13:33 Admit Provider: Murphy Persaud Attending Provider: Murphy Persaud Primary Care Provider: LENNOX ALCOCER Hospital Course Hospital Course: CC: Malnourished HPI: 52-year-old woman with a past medical history significant for Anal Ca, asthma and fibromyalgia presents to to [facility] as a direct admission from [facility] for initiation of TPN. Mrs. Ann has a history of squamous cell CA of the rectum. She was initiated on chemotherapy with concurrent radiation in early April of this year , and has undergone therapy with mitomycin C and oral capecitabine along with XRT. During this time she is noted a decrease in her oral intake secondary to a loss of appetite, along with a concurrent significant weight loss. Patient was referred for admission for initiation of TPN. She already has PICC line in place. She was noted to be hypoxic by vitals - her states that this is her norm , and related to her underlying 'asthma', has home oxygen that she does not utilize. No other events reported. She remained afebrile while hospitalized. Hospital Course by Problem List: (1) Malnourished: Current visit: Yes Status: Acute Secondary to loss of appetite, attributed to chemo, with poor po intake. TPN initiated - Home Health and [facility] for home setup. (2) Squamous cell carcinoma of rectum: Current visit: Yes Status: Acute Diagnosed or 03/2018, undergone treatment with Mitomycin and Capecitabine with concurrent radiation therapy. Completed course 05/25/2018. (3) Hypertension: Current visit: Yes Status: Chronic (4) Asthma: Current visit: Yes Status: Chronic Diagnosis in patient with daily and significant tobacco use - likely component of COPD. Patient with wheezing and hypoxia, reportedly chronic by both patient and . Continue home inhaler thereapy, duonebs prn, and complete initiated oral steroid taper. Encouraged to utilize home oxygen. (5) Fibromyalgia: Current visit: Yes Status: Acute Noted. Continue Gabapentin. Home Meds and New Rx's Prescriptions: New prednisone 10 mg tablet 10 mg PO DAILY 12 Days Qty: 45 RF: 0 Continue prochlorperazine maleate 10 mg Tablet 10 mg PO Q6H PRN PRNRF: 0 ondansetron 8 mg Tablet,Disintegrating 8 mg PO TID PRNRF: 0 lorazepam 0.5 mg Tablet 0.5 mg PO Q4H PRN PRNRF: 0 morphine 60 mg Tablet Extended Release 120 mg PO BID RF: 0 gabapentin 300 mg Capsule 300 mg PO TID RF: 0 hydromorphone 4 mg Tablet 4 mg PO PRN PRNRF: 0 milnacipran 50 mg Tablet 50 mg PO BID RF: 0 potassium chloride 20 mEq Tablet Extended Release 20 meq PO DAILY RF: 0 bisoprolol fumarate 10 mg Tablet 5 mg PO DAILY RF: 0 silver sulfadiazine 1 % Cream 1 applic TOPICAL BID RF: 0 sennosides [senna] 8.6 mg Tablet 8.6 mg PO BID PRNRF: 0 [id number] [Neosporin ([id number])] 3.5mg-400 unit- 5, 000 unit/gram Ointment 1 applic TOPICAL BID RF: 0 ipratropium-albuterol 0.5 mg-3 mg(2.5 mg base)/3 mL Solution For Nebulization 3 ml INHALATION QID RF: 0 loperamide 2 mg Tablet 2 mg PO Q6H PRN PRNRF: 0 hydrocortisone 1 % Cream 1 applic TOPICAL BID RF: 0 budesonide 0.5 mg/2 mL Suspension For Nebulization 0.5 mg INHALATION BID RF: 0 albuterol sulfate 90 mcg/actuation Hfa Aerosol Inhaler 2 puff INHALATION Q6H PRNRF: 0 ketoconazole 2 % Cream 1 applic TOPICAL BID RF: 0 lidocaine 5 % Ointment 1 applic TOPICAL BID RF: 0 morphine 60 mg Tablet Extended Release 60 mg PO 1200 RF: 0 Discharge Instructions Referrals: LENNOX ALCOCER [Primary Care Provider] - Activity:: Activity as Tolerated Equipment/Supplies:: No Equipment Needed Discharge Orders Discharge Orders: Discharge Order (Routine); Ordered 06/02/18 Ordered By: Murphy Persaud Other Ambulatory Orders: Complete Blood Count w/Diff (Routine) Timeframe: 2 Days Location: Determined by Patient Ordered By: Murphy Persaud Comprehensive Metabolic Panel (Routine) Timeframe: 2 Days Location: Determined by Patient Ordered By: Murphy Persaud Phosphorus (Routine) Timeframe: 2 Days Location: Determined by Patient Ordered By: Murphy Persaud Exam Narrative Exam Narrative: General: Patient appears comfortable, sitting up in bed, AAOX3, NAD. Thin and malnurished. Neck: Supple CV: Regular, nontachycardic, S1S2, No rubs, murmurs, or gallops. Pulmonary: Clear to auscultation bilaterally, no crackles, or rhonchi. Mild but diffuse wheezing noted, improved. Abdomen: + Bowel Sounds, soft, nontender, nondistended Vascular: No lower extremity edema Psych: Normal mood and affect. DS: Data Vitals/I&O Vitals and I&O: Vital Signs Temperature 36.5 C 06/02/18 07:10 Temperature Source Tympanic 06/02/18 07:10 Pulse 106 H 06/02/18 07:10 Pulse Rhythm Regular 06/02/18 08:05 Respiratory Rate 20 06/02/18 07:10 Respiratory Effort Non-Labored 06/02/18 08:05 Respiratory Depth Normal 06/02/18 08:05 Respiratory Pattern Normal 06/02/18 08:05 Blood Pressure 130/75 06/02/18 07:10 Pulse Oximetry 95 06/02/18 08:22 Oxygen Delivery Method Nasal Cannula 06/02/18 08:22 Oxygen Flow Rate 2 06/02/18 08:22 Pain Level 8 06/02/18 15:52 Comment 06/01/18 03:07 Intake & Output 06/01/18 06/02/18 06/02/18 23:59 11:59 23:59 Intake Total 1281 / 1281 1581 / 1581 250 / 250 Output Total 500 / 500 600 / 600 200 / 200 Balance 781 / 781 981 / 981 50 / 50 Weight 51.2 kg Intake: IV 1281 / 1281 1031 / 1031 Oral 550 / 550 250 / 250 Output: Urine 500 / 500 600 / 600 200 / 200 Other: Urine Color Yellow Urine Appearance Clear Urine Odor Normal Comment urine is clear yellow with drops of blood. Patient states it is her skin bleeding when wiping, declines assessment at this time. voided x2 Voiding Methods Toilet Bedside Commode Bedside Commode Pending studies at discharge: KNEE SYNOVECTOMY (08/12/02) WBC 2.12 k/cumm (4.4-10.8) L D 06/02/18 06:51 RBC 3.31 m/cumm (4.00-5.20) L 06/02/18 06:51 Hgb 11.2 g/dL (12.0-15.5) L 06/02/18 06:51 Hct 34.0 % (36.0-46.0) L 06/02/18 06:51 MCV 102.7 fL (80-95) H 06/02/18 06:51 MCH 33.8 pg (27.0-33.0) H 06/02/18 06:51 MCHC 32.9 g/dL (32.0-36.0) 06/02/18 06:51 RDW 21.3 % (11.7-14.6) H 06/02/18 06:51 Plt Count 103 x1000/uL (130-400) L 06/02/18 06:51 MPV 11.0 fL (8.0-11.0) 06/02/18 06:51 Immature Gran % 0.0 06/02/18 06:51 Neutrophils % 86.3 06/02/18 06:51 Lymphocytes % 5.2 06/02/18 06:51 Monocytes % 8.5 06/02/18 06:51 Eosinophils % 0.0 06/02/18 06:51 Basophils % 0.0 06/02/18 06:51 Absolute Neutrophils 1.83 k/cumm (1.2-6.7) 06/02/18 06:51 Absolute Lymphocytes 0.11 k/cumm (1.2-3.4) L 06/02/18 06:51 Absolute Monocytes 0.18 k/cumm (0.11-0.7) 06/02/18 06:51 Absolute Eosinophils 0.00 k/cumm (0.0-0.7) 06/02/18 06:51 Absolute Basophils 0.00 k/cumm (0.0-0.2) 06/02/18 06:51 Differential Comment Rbc morph reviewed 06/02/18 06:51 RBC Morphology See below 06/02/18 06:51 Anisocytosis 2+ 06/02/18 06:51 PT 10.9 sec (9.3-10.8) H 06/01/18 07:05 INR 1.1 (1.0-3.5) 06/01/18 07:05 Sodium 132 mmol/L (136-145) L 06/02/18 06:51 Potassium 4.2 mmol/L (3.5-5.1) 06/02/18 06:51 Chloride 95 mmol/L (98-107) L 06/02/18 06:51 Carbon Dioxide 37.5 mmol/L (21.0-32.0) H 06/02/18 06:51 Anion Gap -0.5 mmol/L (3-11) L 06/02/18 06:51 BUN 19 mg/dL (7-18) H 06/02/18 06:51 Creatinine 0.40 mg/dL (0.55-1.02) L 06/02/18 06:51 Estimated GFR/1.73 m2 >= 60.00 (mL/min/1.73m2) 06/02/18 06:51 Glucose 158 mg/dL (70-100) H 06/02/18 06:51 Calcium 8.0 mg/dL (8.5-10.1) L 06/02/18 06:51 Phosphorus 2.0 mg/dL (2.6-4.7) L 06/02/18 06:51 Magnesium 1.9 mg/dL (1.8-2.4) 06/02/18 06:51 Total Bilirubin 0.2 mg/dL (0.2-1.0) 06/02/18 06:51 AST 11 U/L (15-37) L 06/02/18 06:51 ALT 20 U/L (12-78) 06/02/18 06:51 Alkaline Phosphatase 102 U/L (46-116) 06/02/18 06:51 Total Protein 5.9 g/dL (6.4-8.2) L 06/02/18 06:51 Albumin 1.9 g/dL (3.4-5.0) L 06/02/18 06:51 Labs on day of discharge: Labs from last 24 hours 06/02/18 06/02/18 06:51 06:51 WBC 2.12 L D RBC 3.31 L Hgb 11.2 L Hct 34.0 L MCV 102.7 H MCH 33.8 H MCHC 32.9 RDW 21.3 H Plt Count 103 L MPV 11.0 Immature Gran % 0.0 Neutrophils % 86.3 Lymphocytes % 5.2 Monocytes % 8.5 Eosinophils % 0.0 Basophils % 0.0 Absolute Neutrophils 1.83 Absolute Lymphocytes 0.11 L Absolute Monocytes 0.18 Absolute Eosinophils 0.00 Absolute Basophils 0.00 Differential Comment Rbc morph reviewed RBC Morphology See below Anisocytosis 2+ Sodium 132 L Potassium 4.2 Chloride 95 L Carbon Dioxide 37.5 H Anion Gap -0.5 L BUN 19 H Creatinine 0.40 L Estimated GFR/1.73 m2 >= 60.00 Glucose 158 H Calcium 8.0 L Phosphorus 2.0 L Magnesium 1.9 Total Bilirubin 0.2 AST 11 L ALT 20 Alkaline Phosphatase 102 Total Protein 5.9 L Albumin 1.9 L
--- NOTE | 2018-06-02 16:30 | HHF2F_ITS ---
1. Encounter Date and Reason I certify that ANA KAY was seen by Murphy Persaud on 06/02/18 and that I had a [id number] encounter with this patient that meets the physician face to face encounter requirements. 2. Clinical Findings Supporting Skilled Need and Homebound Status I certify that home health services are medically necessary, include either intermittent halfway and/or physical/speech therapy, and that this patient is homebound in that absences from the home require considerable and taxing effort and are infrequent or of short duration, or are attributable to the need to receive medical care. [X] (a) Attached documentation from encounter provides clinical findings supporting skilled need and homebound status (including what assistance patient requires to leave the home). The encounter with the patient was in whole, or in part, for the following medical condition, which is the primary reason for home health care: MALNUTRITION Intermediate: Please resume Home Health Services for new TPN. Labwork in 2 days, with results to Oncology, PCP. Physical Therapy: Speech Therapy: Homebound: 3. Certification and Authentication I certify that I composed the above information based on my clinical judgement relating to this patient's medical condition and, if applicable, clinical findings communicated to me by the NPP or inpatient physician who performed the Home Health Referral. All further orders will be obtained through (Community Based Physician - PCP)
[2018-06-02] MEDS: Normal Saline Flush 10 ML SYR IVP ×2 (18:24→18:28)
== END 2018-06-02 18:37 | disposition home health service (06) ==
PROVIDERS: Family Medicine; Admitting Provider Internal Medicine; PCP Internal Medicine; Visit Provider Internal Medicine
DX: T45.1X5A Adverse effect of antineoplastic and immunosuppressive drugs, initial encounter (principal); E46 Unspecified protein-calorie malnutrition; R09.02 Hypoxemia; J45.909 Unspecified asthma, uncomplicated; C20 Malignant neoplasm of rectum; M79.7 Fibromyalgia; Z68.1 Body mass index [BMI] 19.9 or less, adult; I10 Essential (primary) hypertension; F17.210 Nicotine dependence, cigarettes, uncomplicated
CPT/HCPCS: 36415; 80053; 99217; 99223; 99232; J1650; 83735; 84100; 84134; 85025; 85610; 94640; 99220; 99225; G0378; J3490; J7512; J7620; J7626

== ENCOUNTER 2018-06-04 00:41 | Outpatient (RCR) | payer BC, SELFPAY ==
[2018-05-14] MEDS: Normal Saline Flush 10 ML SYR IVP (07:10)
[2018-05-14 07:50] LABS: Abs Immature Grans 0.01 k/cumm (0.0-0.09); Absolute Basophil Count 0.02 k/cumm (0.0-0.2); Absolute Eosinophil Count 0.24 k/cumm (0.0-0.7); Absolute Lymphocyte Count 0.32 k/cumm (1.2-3.4); Absolute Monocyte Count 0.97 k/cumm (0.11-0.7); Absolute Neutrophil Count 5.02 k/cumm (1.2-6.7); Basophils % 0.3; Eosinophils % 3.6; HCT 36.9 % (36.0-46.0); HGB 11.8 g/dL (12.0-15.5); Immature Grans % 0.2; Lymphocytes % 4.9; Mean Corpuscular Hemoglobin 32.5 pg (27.0-33.0); Mean Corpuscular Volume 101.7 fL (80-95); Mean Platelet Volume 9.9 fL (8.0-11.0); Monocytes % 14.7; Neutrophils % 76.3; Platelet Count 252 x1000/uL (130-400); RBC 3.63 m/cumm (4.00-5.20); RBC Distribution Width 21.4 % (11.7-14.6); White Blood Cell Count 6.58 k/cumm (4.4-10.8)
[2018-05-14 08:03] LABS: ALT 18 U/L (12-78); AST 13 U/L (15-37); Albumin 2.2 g/dL (3.4-5.0); Alkaline Phosphatase 117 U/L (46-116); Anion Gap 0.9 mmol/L (3-11); BUN 7 mg/dL (7-18); Bilirubin, Total 0.4 mg/dL (0.2-1.0); CO2 36.1 mmol/L (21.0-32.0); CREATININE 0.48 mg/dL (0.55-1.02); Calcium 8.2 mg/dL (8.5-10.1); Chloride 98 mmol/L (98-107); Glucose 126 mg/dL (70-100); Potassium 3.9 mmol/L (3.5-5.1); Sodium 135 mmol/L (136-145); Total Protein 6.2 g/dL (6.4-8.2)
[2018-05-14 08:40] LABS: Anisocytosis 1+; Hypochromasia 1+; Macrocytosis 1+
[2018-05-21] MEDS: Normal Saline Flush 10 ML SYR IVP (07:00)
[2018-05-21 07:30] LABS: Absolute Eosinophil Count 0.01 k/cumm (0.0-0.7); Absolute Lymphocyte Count 0.06 k/cumm (1.2-3.4); Absolute Monocyte Count 1.04 k/cumm (0.11-0.7); Absolute Neutrophil Count 1.73 k/cumm (1.2-6.7); Eosinophils % 0.4; HCT 35.3 % (36.0-46.0); HGB 11.9 g/dL (12.0-15.5); Lymphocytes % 2.1; Mean Corp. HGB Concentration 33.7 g/dL (32.0-36.0); Mean Corpuscular Hemoglobin 34.1 pg (27.0-33.0); Mean Corpuscular Volume 101.1 fL (80-95); Mean Platelet Volume 10.1 fL (8.0-11.0); Monocytes % 36.6; Neutrophils % 60.9; Platelet Count 122 x1000/uL (130-400); RBC 3.49 m/cumm (4.00-5.20); White Blood Cell Count 2.84 k/cumm (4.4-10.8)
[2018-05-21 07:45] LABS: ALT 31 U/L (12-78); AST 18 U/L (15-37); Albumin 2.4 g/dL (3.4-5.0); Alkaline Phosphatase 91 U/L (46-116); Anion Gap 4.6 mmol/L (3-11); BUN 13 mg/dL (7-18); Bilirubin, Total 0.4 mg/dL (0.2-1.0); CO2 33.4 mmol/L (21.0-32.0); Chloride 96 mmol/L (98-107); Glucose 132 mg/dL (70-100); Potassium 3.1 mmol/L (3.5-5.1); Sodium 134 mmol/L (136-145)
[2018-05-21 08:03] LABS: Anisocytosis 1+; Diff Comment Diff Reviewed; Macrocytosis 1+
[2018-05-28] MEDS: Normal Saline Flush 10 ML SYR IVP (10:15)
[2018-05-28 10:38] LABS: Abs Immature Grans 0.01 k/cumm (0.0-0.09); Absolute Basophil Count 0.01 k/cumm (0.0-0.2); Absolute Eosinophil Count 0.01 k/cumm (0.0-0.7); Absolute Lymphocyte Count 0.31 k/cumm (1.2-3.4); Absolute Monocyte Count 1.06 k/cumm (0.11-0.7); Absolute Neutrophil Count 3.36 k/cumm (1.2-6.7); Basophils % 0.2; Eosinophils % 0.2; HCT 34.6 % (36.0-46.0); HGB 11.7 g/dL (12.0-15.5); Immature Grans % 0.2; Lymphocytes % 6.5; Mean Corp. HGB Concentration 33.8 g/dL (32.0-36.0); Mean Corpuscular Hemoglobin 34.7 pg (27.0-33.0); Mean Corpuscular Volume 102.7 fL (80-95); Mean Platelet Volume 10.4 fL (8.0-11.0); Monocytes % 22.3; Neutrophils % 70.6; Platelet Count 131 x1000/uL (130-400); RBC 3.37 m/cumm (4.00-5.20); RBC Distribution Width 21.6 % (11.7-14.6); White Blood Cell Count 4.76 k/cumm (4.4-10.8)
[2018-05-28 10:50] LABS: ALT 23 U/L (12-78); AST 13 U/L (15-37); Albumin 2.1 g/dL (3.4-5.0); Alkaline Phosphatase 96 U/L (46-116); Anion Gap 4.4 mmol/L (3-11); BUN 9 mg/dL (7-18); Bilirubin, Total 0.2 mg/dL (0.2-1.0); CO2 33.6 mmol/L (21.0-32.0); CREATININE 0.36 mg/dL (0.55-1.02); Calcium 8.3 mg/dL (8.5-10.1); Chloride 96 mmol/L (98-107); Glucose 141 mg/dL (70-100); Potassium 3.8 mmol/L (3.5-5.1); Sodium 134 mmol/L (136-145)
[2018-05-28 10:59] LABS: Anisocytosis 2+; Diff Comment RBC Morph Reviewed; Macrocytosis 1+
[2018-05-28 13:35] LABS: Magnesium 1.6 mg/dL (1.8-2.4); Triglyceride 82 mg/dL (30-150)
[2018-05-28 14:02] LABS: PHOSPHORUS 3.2 mg/dL (2.6-4.7)
== END 2018-06-06 23:59 | disposition home or self-care (01) ==
LOC: INF 00:41
PROVIDERS: Nurse Practitioner Adult Health; PCP Internal Medicine; Visit Provider Internal Medicine Hematology & Oncology
DX: C21.0 Malignant neoplasm of anus, unspecified (principal); Z45.2 Encounter for adjustment and management of vascular access device
CPT/HCPCS: 36592; 80053; 83735; 84100; 84478; 85025

== ENCOUNTER 2018-06-18 01:17 | Outpatient (RCR) | payer BC, SELFPAY | END 2018-07-07 23:59 | disposition home or self-care (01) | LOC: INF 01:17 | PROVIDERS: PCP Internal Medicine; Visit Provider Internal Medicine Hematology & Oncology | DX: R69 Illness, unspecified (principal) ==

== ENCOUNTER 2018-07-30 00:59 | Outpatient (RCR) | payer BC, SELFPAY ==
[2018-07-08] MEDS: Normal Saline Flush 10 ML SYR IVP (10:15)
[2018-07-08 10:26] LABS: Abs Immature Grans 0.06 k/cumm (0.0-0.09); Absolute Eosinophil Count 0.21 k/cumm (0.0-0.7); Absolute Lymphocyte Count 1.88 k/cumm (1.2-3.4); Absolute Monocyte Count 2.25 k/cumm (0.11-0.7); Absolute Neutrophil Count 5.09 k/cumm (1.2-6.7); Eosinophils % 2.2; HGB 10.7 g/dL (12.0-15.5); Immature Grans % 0.6; Lymphocytes % 19.6; Mean Corp. HGB Concentration 32.4 g/dL (32.0-36.0); Mean Corpuscular Hemoglobin 33.9 pg (27.0-33.0); Mean Corpuscular Volume 104.4 fL (80-95); Mean Platelet Volume 9.6 fL (8.0-11.0); Monocytes % 23.5; Neutrophils % 53.1; Platelet Count 342 x1000/uL (130-400); RBC 3.16 m/cumm (4.00-5.20); RBC Distribution Width 18.8 % (11.7-14.6); White Blood Cell Count 9.59 k/cumm (4.4-10.8)
[2018-07-08 10:40] LABS: ALT 25 U/L (12-78); AST 23 U/L (15-37); Albumin 1.7 g/dL (3.4-5.0); Alkaline Phosphatase 150 U/L (46-116); Anion Gap -1.3 mmol/L (3-11); BUN 9 mg/dL (7-18); Bilirubin, Total 0.2 mg/dL (0.2-1.0); CO2 40.3 mmol/L (21.0-32.0); CREATININE 0.39 mg/dL (0.55-1.02); Calcium 8.1 mg/dL (8.5-10.1); Chloride 95 mmol/L (98-107); Glucose 112 mg/dL (70-100); Sodium 134 mmol/L (136-145); Total Protein 5.8 g/dL (6.4-8.2)
[2018-07-08 10:44] LABS: Potassium 2.9 mmol/L (3.5-5.1)
[2018-07-30] MEDS: Normal Saline Flush 10 ML SYR IVP (12:40)
[2018-07-30 13:07] LABS: Abs Immature Grans 0.06 k/cumm (0.0-0.09); Absolute Basophil Count 0.02 k/cumm (0.0-0.2); Absolute Eosinophil Count 0.04 k/cumm (0.0-0.7); Absolute Lymphocyte Count 0.98 k/cumm (1.2-3.4); Absolute Monocyte Count 0.72 k/cumm (0.11-0.7); Absolute Neutrophil Count 8.21 k/cumm (1.2-6.7); Basophils % 0.2; Eosinophils % 0.4; HCT 34.9 % (36.0-46.0); Immature Grans % 0.6; Lymphocytes % 9.8; Mean Corp. HGB Concentration 31.5 g/dL (32.0-36.0); Mean Corpuscular Hemoglobin 34.1 pg (27.0-33.0); Mean Platelet Volume 10.2 fL (8.0-11.0); Monocytes % 7.2; Neutrophils % 81.8; Platelet Count 360 x1000/uL (130-400); RBC 3.23 m/cumm (4.00-5.20); RBC Distribution Width 16.7 % (11.7-14.6); White Blood Cell Count 10.03 k/cumm (4.4-10.8)
[2018-07-30 13:20] LABS: ALT 34 U/L (12-78); AST 21 U/L (15-37); Albumin 2.6 g/dL (3.4-5.0); Alkaline Phosphatase 113 U/L (46-116); Anion Gap 7.7 mmol/L (3-11); BUN 11 mg/dL (7-18); Bilirubin, Total 0.2 mg/dL (0.2-1.0); CO2 32.3 mmol/L (21.0-32.0); Calcium 8.8 mg/dL (8.5-10.1); Chloride 100 mmol/L (98-107); Glucose 117 mg/dL (70-100); Potassium 4.1 mmol/L (3.5-5.1); Sodium 140 mmol/L (136-145); Total Protein 6.7 g/dL (6.4-8.2)
== END 2018-08-06 23:59 | disposition home or self-care (01) ==
LOC: INF 00:59
PROVIDERS: PCP Internal Medicine; Visit Provider Internal Medicine Hematology & Oncology
DX: C21.0 Malignant neoplasm of anus, unspecified (principal); Z45.2 Encounter for adjustment and management of vascular access device
CPT/HCPCS: 36592; 80053; 85025

== ENCOUNTER 2018-09-03 01:30 | Outpatient (RCR) | payer BC, SELFPAY ==
[2018-08-19 15:17] LABS: Abs Immature Grans 0.11 k/cumm (0.0-0.09); Absolute Basophil Count 0.04 k/cumm (0.0-0.2); Absolute Eosinophil Count 0.28 k/cumm (0.0-0.7); Absolute Lymphocyte Count 1.31 k/cumm (1.2-3.4); Absolute Monocyte Count 1.06 k/cumm (0.11-0.7); Absolute Neutrophil Count 5.33 k/cumm (1.2-6.7); Basophils % 0.5; Eosinophils % 3.4; HCT 38.8 % (36.0-46.0); HGB 12.5 g/dL (12.0-15.5); Immature Grans % 1.4; Lymphocytes % 16.1; Mean Corp. HGB Concentration 32.2 g/dL (32.0-36.0); Mean Corpuscular Hemoglobin 35.1 pg (27.0-33.0); Neutrophils % 65.6; Platelet Count 361 x1000/uL (130-400); RBC 3.56 m/cumm (4.00-5.20); RBC Distribution Width 15.6 % (11.7-14.6); White Blood Cell Count 8.13 k/cumm (4.4-10.8)
[2018-08-19 15:32] LABS: ALT 320 U/L (12-78); AST 95 U/L (15-37); Albumin 3.1 g/dL (3.4-5.0); Alkaline Phosphatase 338 U/L (46-116); Anion Gap 5.1 mmol/L (3-11); BUN 11 mg/dL (7-18); Bilirubin, Total 0.3 mg/dL (0.2-1.0); CO2 37.9 mmol/L (21.0-32.0); CREATININE 0.64 mg/dL (0.55-1.02); Calcium 9.3 mg/dL (8.5-10.1); Chloride 96 mmol/L (98-107); Glucose 109 mg/dL (70-100); Potassium 3.9 mmol/L (3.5-5.1); Sodium 139 mmol/L (136-145); Total Protein 7.3 g/dL (6.4-8.2)
[2018-08-19 15:41] LABS: Diff Comment RBC Morph Reviewed; Macrocytosis 3+
== END 2018-09-06 23:59 | disposition home or self-care (01) ==
LOC: INF 01:30
PROVIDERS: PCP Internal Medicine; Visit Provider Internal Medicine Hematology & Oncology
DX: C21.0 Malignant neoplasm of anus, unspecified (principal)
CPT/HCPCS: 36415; 80053; 85025

== ENCOUNTER 2018-09-24 01:18 | Outpatient (RCR) | payer BC, SELFPAY ==
[2018-09-24 12:24] LABS: Abs Immature Grans 0.01 k/cumm (0.0-0.09); Absolute Basophil Count 0.06 k/cumm (0.0-0.2); Absolute Eosinophil Count 0.21 k/cumm (0.0-0.7); Absolute Lymphocyte Count 1.61 k/cumm (1.2-3.4); Absolute Monocyte Count 1.31 k/cumm (0.11-0.7); Absolute Neutrophil Count 3.76 k/cumm (1.2-6.7); Basophils % 0.9; HGB 14.3 g/dL (12.0-15.5); Immature Grans % 0.1; Lymphocytes % 23.1; Mean Corpuscular Hemoglobin 35.1 pg (27.0-33.0); Mean Corpuscular Volume 103.2 fL (80-95); Mean Platelet Volume 10.4 fL (8.0-11.0); Monocytes % 18.8; Neutrophils % 54.1; Platelet Count 335 x1000/uL (130-400); RBC 4.07 m/cumm (4.00-5.20); RBC Distribution Width 13.4 % (11.7-14.6); White Blood Cell Count 6.96 k/cumm (4.4-10.8)
[2018-09-24 12:51] LABS: ALT 25 U/L (12-78); AST 15 U/L (15-37); Albumin 3.2 g/dL (3.4-5.0); Alkaline Phosphatase 106 U/L (46-116); Anion Gap 3.1 mmol/L (3-11); BUN 4 mg/dL (7-18); Bilirubin, Total 0.2 mg/dL (0.2-1.0); CO2 38.9 mmol/L (21.0-32.0); CREATININE 0.47 mg/dL (0.55-1.02); Calcium 9.2 mg/dL (8.5-10.1); Chloride 99 mmol/L (98-107); Glucose 94 mg/dL (70-100); Sodium 141 mmol/L (136-145)
[2018-09-24 12:58] LABS: Potassium 2.8 mmol/L (3.5-5.1)
== END 2018-10-07 23:59 | disposition home or self-care (01) ==
LOC: INF 01:18
PROVIDERS: PCP Internal Medicine; Visit Provider Internal Medicine Hematology & Oncology
DX: C21.0 Malignant neoplasm of anus, unspecified (principal)
CPT/HCPCS: 36415; 80053; 85025

== ENCOUNTER 2018-10-29 09:04 | Outpatient (RCR) | payer BC, SELFPAY ==
[2018-10-29 09:33] LABS: Absolute Basophil Count 0.08 k/cumm (0.0-0.2); Absolute Eosinophil Count 0.49 k/cumm (0.0-0.7); Absolute Lymphocyte Count 1.54 k/cumm (1.2-3.4); Absolute Monocyte Count 1.04 k/cumm (0.11-0.7); Absolute Neutrophil Count 2.45 k/cumm (1.2-6.7); Basophils % 1.4; Eosinophils % 8.8; HGB 14.2 g/dL (12.0-15.5); Lymphocytes % 27.5; Mean Corpuscular Hemoglobin 34.1 pg (27.0-33.0); Mean Corpuscular Volume 103.1 fL (80-95); Mean Platelet Volume 9.9 fL (8.0-11.0); Monocytes % 18.6; Neutrophils % 43.7; Platelet Count 293 x1000/uL (130-400); RBC 4.17 m/cumm (4.00-5.20); RBC Distribution Width 13.8 % (11.7-14.6)
[2018-10-29 09:54] LABS: ALT 14 U/L (12-78); AST 11 U/L (15-37); Albumin 3.1 g/dL (3.4-5.0); Alkaline Phosphatase 70 U/L (46-116); Anion Gap 3.9 mmol/L (3-11); BUN 6 mg/dL (7-18); Bilirubin, Total 0.2 mg/dL (0.2-1.0); CO2 34.1 mmol/L (21.0-32.0); CREATININE 0.47 mg/dL (0.55-1.02); Calcium 8.5 mg/dL (8.5-10.1); Chloride 103 mmol/L (98-107); Glucose 96 mg/dL (70-100); Potassium 3.9 mmol/L (3.5-5.1); Sodium 141 mmol/L (136-145); Total Protein 6.9 g/dL (6.4-8.2)
== END 2018-11-04 23:59 | disposition home or self-care (01) ==
LOC: INF 09:04
PROVIDERS: PCP Internal Medicine; Visit Provider Internal Medicine Hematology & Oncology
DX: C21.0 Malignant neoplasm of anus, unspecified (principal)
CPT/HCPCS: 36415; 80053; 85025

== ENCOUNTER 2018-12-03 01:51 | Outpatient (RCR) | payer BC, SELFPAY ==
[2018-12-03 12:15] LABS: Abs Immature Grans 0.02 k/cumm (0.0-0.09); Absolute Basophil Count 0.05 k/cumm (0.0-0.2); Absolute Eosinophil Count 0.21 k/cumm (0.0-0.7); Absolute Lymphocyte Count 1.75 k/cumm (1.2-3.4); Absolute Monocyte Count 1.23 k/cumm (0.11-0.7); Absolute Neutrophil Count 5.34 k/cumm (1.2-6.7); Basophils % 0.6; Eosinophils % 2.4; HCT 38.6 % (36.0-46.0); HGB 13.1 g/dL (12.0-15.5); Immature Grans % 0.2; Lymphocytes % 20.3; Mean Corp. HGB Concentration 33.9 g/dL (32.0-36.0); Mean Corpuscular Hemoglobin 33.9 pg (27.0-33.0); Mean Corpuscular Volume 99.7 fL (80-95); Mean Platelet Volume 9.7 fL (8.0-11.0); Monocytes % 14.3; Neutrophils % 62.2; Platelet Count 449 x1000/uL (130-400); RBC 3.87 m/cumm (4.00-5.20); RBC Distribution Width 14.1 % (11.7-14.6)
[2018-12-03 12:32] LABS: ALT 14 U/L (12-78); AST 14 U/L (15-37); Albumin 3.2 g/dL (3.4-5.0); Alkaline Phosphatase 82 U/L (46-116); BUN 9 mg/dL (7-18); Bilirubin, Total 0.3 mg/dL (0.2-1.0); CREATININE 0.44 mg/dL (0.55-1.02); Calcium 9.2 mg/dL (8.5-10.1); Chloride 101 mmol/L (98-107); Glucose 102 mg/dL (70-100); Potassium 3.6 mmol/L (3.5-5.1); Sodium 138 mmol/L (136-145)
== END 2018-12-05 23:59 | disposition home or self-care (01) ==
LOC: INF 01:51
PROVIDERS: PCP Internal Medicine; Visit Provider Internal Medicine Hematology & Oncology
DX: C21.0 Malignant neoplasm of anus, unspecified (principal)
CPT/HCPCS: 36415; 80053; 85025

== ENCOUNTER 2019-01-07 13:31 | Outpatient (RCR) | payer BC, SELFPAY ==
[2019-01-07 13:52] LABS: Abs Immature Grans 0.01 k/cumm (0.0-0.09); Absolute Basophil Count 0.06 k/cumm (0.0-0.2); Absolute Eosinophil Count 0.33 k/cumm (0.0-0.7); Absolute Lymphocyte Count 1.27 k/cumm (1.2-3.4); Absolute Monocyte Count 1.04 k/cumm (0.11-0.7); Absolute Neutrophil Count 2.88 k/cumm (1.2-6.7); Basophils % 1.1; Eosinophils % 5.9; HCT 40.9 % (36.0-46.0); HGB 13.5 g/dL (12.0-15.5); Immature Grans % 0.2; Lymphocytes % 22.7; Mean Corpuscular Hemoglobin 33.7 pg (27.0-33.0); Mean Platelet Volume 10.2 fL (8.0-11.0); Monocytes % 18.6; Neutrophils % 51.5; Platelet Count 390 x1000/uL (130-400); RBC 4.01 m/cumm (4.00-5.20); RBC Distribution Width 14.9 % (11.7-14.6); White Blood Cell Count 5.59 k/cumm (4.4-10.8)
[2019-01-07 14:04] LABS: ALT 201 U/L (12-78); AST 63 U/L (15-37); Albumin 3.4 g/dL (3.4-5.0); Alkaline Phosphatase 183 U/L (46-116); Anion Gap 5.8 mmol/L (3-11); BUN 7 mg/dL (7-18); Bilirubin, Total 0.4 mg/dL (0.2-1.0); CO2 34.2 mmol/L (21.0-32.0); CREATININE 0.46 mg/dL (0.55-1.02); Calcium 9.6 mg/dL (8.5-10.1); Chloride 102 mmol/L (98-107); Glucose 122 mg/dL (70-100); Potassium 3.3 mmol/L (3.5-5.1); Sodium 142 mmol/L (136-145); Total Protein 7.5 g/dL (6.4-8.2)
== END 2019-02-04 23:59 | disposition home or self-care (01) ==
LOC: INF 13:31
PROVIDERS: PCP Internal Medicine; Visit Provider Internal Medicine Hematology & Oncology
DX: C21.0 Malignant neoplasm of anus, unspecified (principal)
CPT/HCPCS: 36415; 80053; 85025

== ENCOUNTER 2019-06-24 11:53 | Outpatient (RCR) | payer BC, SELFPAY ==
[2019-06-24 12:22] LABS: Abs Immature Grans 0.01 k/cumm (0.0-0.09); Absolute Basophil Count 0.05 k/cumm (0.0-0.2); Absolute Lymphocyte Count 1.55 k/cumm (1.2-3.4); Absolute Monocyte Count 1.05 k/cumm (0.11-0.7); Absolute Neutrophil Count 3.33 k/cumm (1.2-6.7); Basophils % 0.8; Eosinophils % 3.2; HCT 42.6 % (36.0-46.0); HGB 13.9 g/dL (12.0-15.5); Immature Grans % 0.2; Mean Corp. HGB Concentration 32.6 g/dL (32.0-36.0); Mean Corpuscular Hemoglobin 32.9 pg (27.0-33.0); Mean Corpuscular Volume 100.9 fL (80-95); Mean Platelet Volume 9.9 fL (8.0-11.0); Neutrophils % 53.8; Platelet Count 380 x1000/uL (130-400); RBC 4.22 m/cumm (4.00-5.20); RBC Distribution Width 13.9 % (11.7-14.6); White Blood Cell Count 6.19 k/cumm (4.4-10.8)
[2019-06-24 12:36] LABS: ALT 24 U/L (14-59); AST 11 U/L (15-37); Albumin 3.5 g/dL (3.4-5.0); Alkaline Phosphatase 96 U/L (46-116); Anion Gap 8.5 mmol/L (3-11); BUN 7 mg/dL (7-18); Bilirubin, Total 0.2 mg/dL (0.2-1.0); CO2 31.5 mmol/L (21.0-32.0); CREATININE 0.51 mg/dL (0.55-1.02); Chloride 102 mmol/L (98-107); Glucose 94 mg/dL (70-100); Potassium 3.4 mmol/L (3.5-5.1); Sodium 142 mmol/L (136-145); Total Protein 7.4 g/dL (6.4-8.2)
== END 2019-07-07 23:59 | disposition home or self-care (01) ==
LOC: INF 11:53
PROVIDERS: PCP Internal Medicine; Visit Provider Internal Medicine Hematology & Oncology
DX: C21.0 Malignant neoplasm of anus, unspecified (principal)
CPT/HCPCS: 36415; 80053; 85025

== ENCOUNTER 2019-10-07 04:48 | Outpatient (RCR) | payer BC, SELFPAY ==
[2019-10-07 09:49] LABS: Abs Immature Grans 0.01 k/cumm (0.0-0.09); Absolute Basophil Count 0.06 k/cumm (0.0-0.2); Absolute Eosinophil Count 0.14 k/cumm (0.0-0.7); Absolute Lymphocyte Count 1.46 k/cumm (1.2-3.4); Absolute Monocyte Count 0.82 k/cumm (0.11-0.7); Absolute Neutrophil Count 4.55 k/cumm (1.2-6.7); Basophils % 0.9; HCT 41.6 % (36.0-46.0); HGB 13.7 g/dL (12.0-15.5); Immature Grans % 0.1 %; Lymphocytes % 20.7; Mean Corp. HGB Concentration 32.9 g/dL (32.0-36.0); Mean Corpuscular Volume 103.2 fL (80-95); Mean Platelet Volume 9.9 fL (8.0-11.0); Monocytes % 11.6; Neutrophils % 64.7; Platelet Count 429 x1000/uL (130-400); RBC 4.03 m/cumm (4.00-5.20); RBC Distribution Width 14.4 % (11.7-14.6); White Blood Cell Count 7.04 k/cumm (4.4-10.8)
[2019-10-07 10:09] LABS: ALT 42 U/L (14-59); AST 12 U/L (15-37); Albumin 3.7 g/dL (3.4-5.0); Alkaline Phosphatase 154 U/L (46-116); BUN 8 mg/dL (7-18); Bilirubin, Total 0.3 mg/dL (0.2-1.0); CREATININE 0.43 mg/dL (0.55-1.02); Chloride 102 mmol/L (98-107); Glucose 96 mg/dL (74-106); Potassium 3.7 mmol/L (3.5-5.1); Sodium 141 mmol/L (136-145); Total Protein 7.5 g/dL (6.4-8.2)
== END 2019-10-07 23:59 | disposition home or self-care (01) ==
LOC: INF 04:48
PROVIDERS: PCP Internal Medicine; Visit Provider Internal Medicine Hematology & Oncology
DX: C21.0 Malignant neoplasm of anus, unspecified (principal)
CPT/HCPCS: 36415; 80053; 85025

== ENCOUNTER 2020-01-06 04:24 | Outpatient (RCR) | payer BC, SELFPAY | END 2020-02-05 23:59 | disposition home or self-care (01) | LOC: INF 04:24 | PROVIDERS: PCP Internal Medicine; Visit Provider Internal Medicine Hematology & Oncology | DX: R69 Illness, unspecified (principal) ==

== ENCOUNTER 2020-04-20 05:54 | Outpatient (RCR) | payer BC, SELFPAY ==
[2020-04-20 13:52] LABS: Abs Immature Grans 0.01 10^3/uL (0.0-0.06); Absolute Basophil Count 0.11 10^3/uL (0.0-0.2); Absolute Eosinophil Count 0.24 10^3/uL (0.0-0.7); Absolute Lymphocyte Count 1.85 10^3/uL (1.2-3.4); Absolute Monocyte Count 0.89 10^3/uL (0.1-0.8); Absolute Neutrophil Count 3.34 10^3/uL (1.2-6.7); Basophils % 1.7; Eosinophils % 3.7; HCT 41.2 % (36.0-46.0); HGB 13.6 g/dL (11.2-15.7); Immature Grans % 0.2; Lymphocytes % 28.7; MPV 9.8 fL (8.0-11.0); Monocytes % 13.8; Neutrophils % 51.9; Nucleated RBC 0 %; Platelet Count 370 10^3/uL (130-400); RBC 4.12 10^6/uL (3.93-5.22); RDW 13.6 % (11.7-14.6); RDW-SD 50.5 fL; WBC 6.44 10^3/uL (4.4-10.8)
[2020-04-20 14:08] LABS: ALT 42 U/L (14-59); AST 13 U/L (15-37); Albumin 3.6 g/dL (3.4-5.0); Alkaline Phosphatase 134 U/L (46-116); Anion Gap 4.8 mmol/L (3-11); BUN 6 mg/dL (7-18); Bilirubin, Total 0.3 mg/dL (0.2-1.0); CO2 31.2 mmol/L (21.0-32.0); CREATININE 0.45 mg/dL (0.55-1.02); Calcium 9.3 mg/dL (8.5-10.1); Chloride 101 mmol/L (98-107); Glucose 101 mg/dL (74-106); Sodium 137 mmol/L (136-145); Total Protein 7.8 g/dL (6.4-8.2)
== END 2020-05-07 23:59 | disposition home or self-care (01) ==
LOC: INF 05:54
PROVIDERS: PCP Internal Medicine; Visit Provider Internal Medicine Hematology & Oncology
DX: C21.0 Malignant neoplasm of anus, unspecified (principal)
CPT/HCPCS: 36415; 80053; 85025

== ENCOUNTER 2020-08-24 13:25 | Outpatient (RCR) | payer BC, SELFPAY ==
--- OUTSIDE RECORDS SUMMARY | 2020-08-24 13:28 | XMS_ITS ---
:1965 Author Care Team Providers Name Role Phone MALCOM GALVAN MD General Surgeon [phone] IWLNER ESPINOZA Primary Care Provider [phone] Allergies Code Code System Name Reaction Severity Status Onset Animal Dander ? ? Active ? 1191 RxNorm Aspirin ? ? Active ? Cigarette ? ? Active ? Smoke 900844 RxNorm House Dust ? ? Active ? Insect Venom ? ? Active ? 9305990 RxNorm Latex Rash ? Active ? Perfume ? ? Active ? Pollen ? ? Active ? Extracts Soap ? ? Active ? Medications Name Status Start Date Stop Date ? ? albuterol sulfate HFA 90 Active ? Not leona ilable mcg/actuation aerosol inhaler Ambien 5 mg tablet Completed 08/06/2016 09/18/2016 1 (one) Tablet: qhs - at bedtime as needed amoxicillin 875 mg tablet Completed ? 2019 Take 1 tablet every 12 hours by oral route for 30 days. amoxicillin 875 mg tabs Completed ? 11/10/19 20 atenolol 25 mg tablet Completed 07/23/2015 08/22/2016 azithromycin 250 mg tablet Completed ? 09/28 bisoprolol fumarate 10 mg tablet Active ? Not available TAKE ONE TABLET BY MOUTH ONCE DAILY bisoprolol fumarate 10 mg tabs Completed ? 0 11/10/2019 Breo Ellipta 100 mcg-25 mcg/dose powder for inhalation Completed 09/08/2017 09/22/2017 1 (one) Puff: once a day budesonide 0.5 mg/2 mL suspension for nebulization Active 01/14/2019 Not available INHALE ONE (2ML) VIAL, VIA NEBULIZER TWICE A DAY capecitabine Completed ? 05/14/2018 1300mg on days of radiation capecitabine 150 mg tablet Active ? Not a vailable capecitabine 500 mg tablet Completed ? 06/08 cephalexin 250 mg capsule Completed ? 2018 Take 1 capsule every 6 hours by oral route. cephalexin 500 mg capsule Completed ? 2018 cholestyramine (with sugar) 4 gram Completed ? 03/15/2019 powder for susp in a packet cholestyramine 4 gm pack Completed ? ciprofloxacin 250 mg tablet Completed ? 01/2018 clotrimazole 1 % topical cream Completed ? 0 12/31/2018 clotrimazole 10 mg parmjit Completed ? 2017 colestipol 1 gram tablet Active ? Not leona ilable Take 2 tablets twice a day by oral route. colestipol hcl 1 gm tabs Completed ? 020 Creon Active ? Not available 3 times daily before meals. cyclobenzaprine 10 mg tablet Active ? Not available duloxetine 20 mg capsule,delayed Active ? Not available release dexamethasone 2 mg tablet Completed ? 2018 dicyclomine 20 mg tablet Active ? Not leona ilable dicyclomine hydrochloride 20 mg Completed ? 10/12/2019 tabs diphenoxylate Completed ? 10/12/2019 hydrochloride/atropine sulfate 2.5-0.025 mg tabs diphenoxylate-atropine 2.5 Active ? Not a vailable mg-0.025 mg tablet diphenoxylate/atropine 2.5-0.025 Completed ? 10/12/2019 mg tabs fat emulsion 20 % intravenous Completed ? 50g in 250ml IV daily Flublok Quad 7672-6637 (PF) 180 Completed ? 09/13/2019 mcg (45 mcg x 4)/0.5 mL IM syringe flublok quadrivalent 8439-2636 .5 Completed ? 10/12/2019 ml sosy fluoxetine 20 mg capsule Completed ? 018 gabapentin 300 mg caps Completed ? 0 gabapentin 300 mg capsule Completed ? 2018 gabapentin 600 mg tablet Active ? Not leona ilable gabapentin 600 mg tabs Completed ? 0 gavilyte-g 236 gm solr Completed ? 0 GaviLyte-G 236 gram-22.74 Active 01/14/2019 Not av ailable gram-6.74 gram-5.86 gram oral solution hydrocodone 5 mg-acetaminophen 325 Completed ? 04/08/2019 mg tablet hydrocodone/acetaminophen 5-325 Completed ? 10/12/2019 mgtabs hydrocortisone 1 % topical cream Completed ? 12/31/2018 hydromorphone 2 mg tablet Active ? Not av ailable hydromorphone 4 mg tablet Completed ? 2017 ibuprofen 600 mg tablet Completed ? 06/08/20 18 Take 1 tablet every 6 hours by oral route as needed. ibuprofen 800 mg tablet Completed 07/23/2015 11/30/19 16 Incruse Ellipta 62.5 mcg/actuation Active ? Not available powder for inhalation ipratropium 0.5 mg-albuterol 3 mg (2.5 mg base)/3 mL nebulizatio n soln Active ? Not available INHALE THE CONTENTS OF 1 AMPULE (3ML) BY MOUTH VIA NEBULIZER 4 TIMES DAILY ipratropium bromide/albuterol Completed ? sulfate 0.5-2.5 (3) mg/3ml soln ketoconazole 2 % topical cream Completed ? 0 12/31/2018 Klor-Con M20 mEq tablet,extended release Completed 019 12/31/2018 Take 2 tablets every day by oral route for 30 days. levofloxacin 250 mg tablet Completed ? 05/12 levofloxacin 500 mg tablet Completed ? 09/08 levofloxacin 750 mg tablet Completed ? 03/03 lidocaine Completed ? 12/31/2018 apply topically 2 times daily lidocaine 5 % topical ointment Active ? N ot available lidocaine-prilocaine 2.5 %-2.5 % Completed ? 09/08/2018 topical cream loperamide 2 mg tablet Active 01/14/2019 Not avail able Take 1 tablet every day by oral route as needed. lorazepam 0.5 mg tablet Completed ? 09/28/19 19 methylprednisolone 4 mg tablets in Completed ? 06/08/2018 a dose pack Methylprednisone 4 mg tablet Completed ? 10/2017 Dospak, use as directed on package Miralax 17 gram/dose oral powder Completed ? 12/31/2018 TAKE 17 GRAM MIXED WITH 8 OZ. WATER, JU ICE, SODA, COFFEE OR TEA BY ORAL ROUTE Twice DAILY mirtazapine 15 mg tablet Completed ? 019 morphine Completed ? 04/07/2018 morphine 30 mg immediate release tablet Completed 07/23/20 18 08/02/2018 Take 1 tablet twice a day by oral route. morphine ER 15 mg tablet,extended Completed ? 06/08/2018 release morphine ER 60 mg tablet,extended Completed ? 07/12/2018 release Neosporin (cng-nhe-zcybg) Completed ? 2018 apply topically 2 times daily nystatin 100,000 unit/gram topical cream Completed 016 09/05/2016 1 (one) Application: abid omeprazole 40 mg capsule,delayed release Unknown ? Not available 1 (one) Capsule Capsule: qd - daily take about same time each day before meal ondansetron 4 mg disintegrating tablet Completed ? 05/12/2018 Take 1 tablet every 8 hours by oral route as needed. ondansetron HCl 4 mg tablet Active ? Not available ondansetron HCl 8 mg tablet Completed ? 12/07 pantoprazole 40 mg tablet,delayed release Completed ? 06/08/2018 Take 1 tablet every day by oral route. potassium chloride ER 20 mEq tablet,extended release Completed 01/14/2019 10/12/2019 Take 1 tablet every other day by oral route. potassium, sodium phosphates 280 mg-160 mg-250 mg oral powde r packet Completed ? 05/12/2018 Take 2 packets 4 times a day by oral route. prednisone 10 mg tablet Completed ? 07/12/20 18 prednisone 20 mg tablet Active ? Not avai lable proair hfa 108 (90 base) mcg/act Completed ? 11/21/2019 aers prochlorperazine 10 mg tablet Completed ? Take 1 tablet every 6 hours by oral route as needed. prochlorperazine maleate 10 mg Completed ? 1 09/11/2017 tablet Pulmicort Flexhaler 180 Active ? Not avai lable mcg/actuation breath activated Readi-Cat 2 2 % (w/v) oral Completed ? 10/2017 suspension Savella 100 mg tablet Completed ? 02/08/2020 Savella 12.5 mg (5)-25 Active ? Not avail able mg(8)-50mg(42) tablets in a dose pack Savella 50 mg tablet Active ? Not availab le Take 1 tablet twice a day by oral route. savella 50 mg tabs Completed ? 10/12/2019 senna-docusate sodium 8.6 mg-50 mg tablet Completed ? 12/31/2018 Take 1 tablet twice a day by oral route. Spiriva with HandiHaler 18 mcg and inhalation capsules Completed 09/29/2016 12/29/2016 1 (one) capsule capsule: daily SSD 1 % topical cream Completed ? 12/31/2018 sucralfate 1 gm tabs Completed ? 10/12/2019 sucralfate 1 gram tablet Completed ? 019 Symbicort 160 mcg-4.5 mcg/actuation HFA aerosol inhaler Complete d 05/02/2016 07/15/2016 1 (one) Puff: bid - twice daily tramadol 50 mg tablet Completed ? 11/10/2019 1 (one) Tablet Tablet: every 6 hours as needed for pain tramadol hcl 50 mg tabs Completed ? 11/10/19 20 Notes: 10/12/2019 patient brought medications. Problems Name Status Onset Date Source ? Primary Malignant Neoplasm of Anus Active 04/07/2018 ? Hypovolemia Unknown 04/20/2018 ? Hypokalemia Active 04/20/2018 ? Leukocytosis Unknown 04/20/2018 ? Retention of Urine Active 04/20/2018 ? Fibromyalgia Active 05/12/2018 ? Decreased Body Mass Index Active 06/04/2018 ? Depressive Disorder Active 07/12/2018 ? Nonulcer Dyspepsia Active 09/28/2018 ? Loss of Hair Active 09/28/2018 ? Gastritis Active 12/03/2018 ? Abdominal Pain Active 12/31/2018 ? Cholelithiasis without Obstruction Active 01/07/2019 ? Diarrhea Active 02/14/2019 ? Nicotine Dependence Active ? History Insomnia Unknown ? History Carpal Tunnel Syndrome Active ? History Lesion of Ulnar Nerve Active ? History Hypertensive Disorder Active ? History Asthma Active ? History Chronic Obstructive Lung Disease Active ? History Muscle Pain Unknown ? History Dizziness and Giddiness Unknown ? History Anesthesia of Skin Unknown ? History Chest Pain Unknown ? History Intra-abdominal and Pelvic Swelling, Mass Unknown ? History and Lump Adult Health Examination Unknown ? History Pain of Right Elbow Joint Unknown ? Histor y Pain in Right Foot Unknown ? History Finding of Esophagus Unknown ? History Injury of Lower Extremity Unknown ? Histor y Pain of Right Wrist Unknown ? History Procedure by Method Unknown ? History Procedures Date Name Performed by ? 02/21/2019 Colonoscopy Information not avai lable Notes: [facility]. Normal Dr Amaral 01/14/2019 Cholecystectomy Information not avai lable Notes: laparoscopic. Dr. Galvan 09/07/1997 Leep Information not avai lable 09/07/1993 Fracture Surgery Information not avai lable Notes: right radial head fracture fredis santana ? Tonsillectomy Information not avai lable ? Laparoscopy Information not avai lable Notes: exploratory ? Tubal Ligation Information not avai lable ? Carpal Tunnel Surgery Information not av ailable Notes: bilateral ? Knee Surgery Information not avai lable Notes: right ? Arm Surgery Information not avai lable Notes: bilateral ulnar nerve transpos ition 12/31/2018 US, Abdomen, Limited [facility] [address], [place] [id number] (Work Place) 08/10/2019 MAMMO, Screening, Tomosynthesis, [facility] Radiology (Internal) Bilateral [address] [place] [address] (Work Place) Results Lab Results Date Name Specimen Result Interpretation Description Value Range Status Address ? 11/15/2019 Lactic Acid, S ? [place] 0.8 mmol/L 0.7-2.1 [facility] Blood mmol/L [facility] L ab (Internal) : [address] 11/15/2019 CBC W/ Auto BLD High Wbc 17.6 5.0-10.0 Final [place] Diff 10*3/uL 10*3/uL [facility] L ab (Internal) : [address] ? ? BLD Low Rbc 3.78 4.10-5.30 Final [place] 10*6/uL 10*6/uL [facility] L ab (Internal) : [address] ? ? BLD ? Hgb 12.6 g/dL 12.0-16.0 Final Nort h g/dL [facility] L ab (Internal) : [address] ? ? BLD ? Hct 38.3 % 37.0-47.0 Final [place] % [facility] L ab (Internal) : [address] ? ? BLD High Mcv 101.3 fL 80.0-96.0 Final [facility] L ab (Internal) : [address] ? ? BLD High Mch 33.3 pg 26.0-32.0 Final [place] pg [facility] L ab (Internal) : [address] ? ? BLD ? Mchc 32.9 g/dL 31.0-35.0 Final Nort h g/dL [facility] (Internal[facility] : [address] t ? ? BLD ? Rdw 12.7 % 11.5-14.5 Final [facility] (Internal[facility] : [address] t ? ? BLD ? Plt 372 10*3/uL 130-450 Final Nort h 10*3/uL [facility] (Internal) : [address] 11/15/2019 CMP, Serum S High g/r 133 mg/dL 74-106 Final North or Plasma mg/dL [facility] (Internal) : [address] t ? ? S ? Bun 9 mg/dL 7-17 Final North mg/dL [facility] (Internal) : [address] t ? ? S Low Crea 0.20 mg/dL 0.52-1.04 Final Nor th mg/dL [facility] (Internal) : [address] t ? ? S ? Ca 9.2 mg/dL 8.4-10.2 Final North mg/dL [facility] (Internal) : [address] t ? ? S ? Na 138 mmol/L 137-145 Final [place] mmol/L [facility] (Internal) : [address] t ? ? S Low K 3.0 mmol/L 3.5-5.1 Final [place] mmol/L [facility] (Internal) : [address] t ? ? S Low Cl 93 mmol/L 98-107 Final [place] mmol/L [facility] (Internal) : [address] t ? ? S High Tco2 37.0 mmol/L 22.0-30.0 Final No rth mmol/L [facility] (Internal) : [address] t ? ? S ? Tp 7.1 g/dL 6.3-8.2 Final [place] g/dL [facility] (Internal) : [address] t ? ? S ? Alb 3.8 g/dL 3.5-5.0 Final [place] g/dL [facility] L [facility] (Internal) : [address] ? ? S ? Tbil 0.3 mg/dL 0.2-1.3 Final [place] mg/dL [facility] L ab (Internal) : [address] ? ? S ? Alp 127 U/L 50-136 Final [place] U/L [facility] Hospital L ab (Internal) : [address] ? ? S ? Alt 12 U/L 9-52 U/L Final [place] (Sgpt) [facility] Hospital L ab (Internal) : [address] ? ? S ? Ast 18 U/L 14-36 U/L Final [place] (Sgot) [facility] L ab (Internal) : [address] 11/15/2019 Rapid Flu NASAL ? Final microbiolog ? Final [place] (A+B) y results [facility] Hospital L ab (Internal) : [address] 11/15/2019 Differential BLD High Polys 88 % 40-75 % Final [facility], [facility] Blood Hospital L ab (Internal) : [address] ? ? BLD ? Bands 0 % 0-5 % Final [facility] L ab (Internal) : [address] ? ? BLD Low Lymphs 3 % 20-50 % Final [facility] Hospital L ab (Internal) : [address] ? ? BLD ? [place] 6 % 2-10 % Final [facility] Hospital L ab (Internal) : [address] ? ? BLD ? Eos 0 % 0-6 % Final [facility] Hospital L ab (Internal) : [address] ? ? BLD ? Baso 1 % 0-1 % Final [facility] Hospital L ab (Internal) : [address] ? ? BLD ? Atyp 2 % ? Final [facility] Hospital L ab (Internal) : [address] ? ? BLD ? Plts, adequate adequate Final [facility] Hospital L ab (Internal) : [address] ? ? BLD ABNORM RBC abnormal normal Final [place] AL Morphol [facility] og Hospital L ab (Internal) : [address] ? ? BLD ? Macro small ? Final [facility] L ab (Internal) : [address] ? ? BLD ? Polych rare ? Final [facility] L ab (Internal) : [address] ? ? BLD ? Stomat rare ? Final [facility] L ab (Internal) : [address] t 11/15/2019 Neutrophil BLD ? Anc-ma 15.50 ? Final N orth Count, nual 10*3/uL [facility] (Anc), Blood (Int ernal): [address] 09/22/2019 Tissue S - Tissue 2.1 U/mL <4.0 Final Nor th Transglutami Transgl (negative Country nase IgA Ab, utamina ) U/mL Hos pital Lab Quantitative se Ab, (Int ernal): , Serum IgA, S [address] [facility] 09/22/2019 Iga, S - Iga 269 mg/dL 85-499 Final Nor th Quantitative mg/dL Coun try , Serum Hospital Lab (Internal) : [address] [facility] 09/22/2019 Neutrophil BLD - Anc-ma 5.19 ? Final N orth Count, nual 10*3/uL [facility] (Anc), Blood (Int ernal): [address] [facility] Differential BLD - Polys 57 % 40-75 % Final [facility] Blood Hospital L ab (Internal) : [address] ? ? BLD - Bands 0 % 0-5 % Final [facility] L ab (Internal) : [address] ? ? BLD - Lymphs 25 % 20-50 % Final [facility] Hospital L ab (Internal) : [address] ? ? BLD High [place] 13 % 2-10 % Final [facility] Hospital L ab (Internal) : [address] ? ? BLD - Eos 5 % 0-6 % Final [facility] L ab (Internal) : [address] ? ? BLD - Baso 0 % 0-1 % Final [facility] Hospital L ab (Internal) : [address] ? ? BLD - Atyp 0 % ? Final [facility] L ab (Internal) : [address] ? ? BLD - Plts, adequate adequate Final [place] Est. [facility] L ab (Internal) : [address] ? ? BLD ABNORM RBC abnormal normal Final [place] AL Morphol [facility] L ab (Internal) : [address] ? ? BLD - Macro occasional ? Final [facility] L ab (Internal) : [address] 09/22/2019 TSH, Serum S - Tsh 1.89 0.47-4.68 Final North or Plasma u[IU]/mL u[IU]/mL [facility] L ab (Internal) : [address] 09/22/2019 CMP, Serum S High g/r 108 mg/dL 74-106 Final North or Plasma mg/dL [facility] L ab (Internal) : [address] ? ? S - Bun 8 mg/dL 7-17 Final [place] mg/dL [facility] L ab (Internal) : [address] ? ? S Low Crea 0.30 mg/dL 0.52-1.04 Final Nor th mg/dL [facility] L ab (Internal) : [address] ? ? S - Ca 9.4 mg/dL 8.4-10.2 Final [place] mg/dL [facility] L ab (Internal) : [address] ? ? S - Na 138 mmol/L 137-145 Final [place] mmol/L [facility] L ab (Internal) : [address] ? ? S - K 3.5 mmol/L 3.5-5.1 Final [place] mmol/L [facility] L ab (Internal) : [address] ? ? S - Cl 103 mmol/L 98-107 Final [place] mmol/L [facility] L ab (Internal) : [address] ? ? S - Tco2 30.0 mmol/L 22.0-30.0 Final No rth mmol/L [facility] L ab (Internal) : [address] ? ? S - Tp 7.3 g/dL 6.3-8.2 Final [place] g/dL [facility] L ab (Internal) : [address] t ? ? S - Alb 4.0 g/dL 3.5-5.0 Final [place] g/dL [facility] Hospital L ab (Internal) : [address] t ? ? S - Tbil 0.2 mg/dL 0.2-1.3 Final [place] mg/dL [facility] Hospital L ab (Internal) : [address] t ? ? S - Alp 119 U/L 50-136 Final [place] U/L [facility] Hospital L ab (Internal) : [address] ? ? S - Alt 38 U/L 9-52 U/L Final [place] (Sgpt) [facility] Hospital L ab (Internal) : [address] t ? ? S - Ast 25 U/L 14-36 U/L Final [place] (Sgot) [facility] Hospital L ab (Internal) : [address] 09/22/2019 CBC W/ Auto BLD - Wbc 9.1 10*3/uL 5.0-10.0 F inal [place] Diff 10*3/uL [facility] (Internal) : [address] ? ? BLD Low Rbc 4.04 4.10-5.30 Final [place] 10*6/uL 10*6/uL [facility] (Internal) : [address] ? ? BLD - Hgb 13.2 g/dL 12.0-16.0 Final Nort h g/dL [facility] Hospital L ab (Internal) : [address] ? ? BLD - Hct 40.9 % 37.0-47.0 Final [place] % [facility] Hospital L ab (Internal) : [address] ? ? BLD High Mcv 101.2 fL 80.0-96.0 Final [place] fL [facility] Hospital L ab (Internal) : [address] ? ? BLD High Mch 32.7 pg 26.0-32.0 Final [place] pg [facility] Hospital L ab (Internal) : [address] ? ? BLD - Mchc 32.3 g/dL 31.0-35.0 Final Nort h g/dL [facility] Hospital L ab (Internal) : [address] ? ? BLD High Rdw 14.7 % 11.5-14.5 Final North % [facility] Hospital L ab (Internal) : [address] t ? ? BLD - Plt 377 10*3/uL 130-450 Final Nort h 10*3/uL [facility] ab (Internal) : [address] 08/18/2019 Enteric STL - [place] negative negative Final [place] Bacteria, dania [facility] Organism PCR Hospital Lab Specific (Interna l): Culture, [address] ? ? STL - Shigel negative negative Final [place] la PCR [facility] L ab (Internal) : [address] ? ? STL - Campyl negative negative Final [place] obacter [facility] Hospital ab (Internal) : [address] t ? ? STL - Shiga negative negative Final [place] Toxin [facility] ab (Internal) : [address] 08/18/2019 Fecal Fat, STL - Total 9 g ? Final No rth Quantitative Weight Coun try , Hospital ab 30-Ggbc-emmy (Int ernal): l [address] t ? ? STL - Durati random h ? Final [place] on [facility] ab (Internal) : [address] ? ? STL High % Fat 20 % fat < 20 % Final [place] fat [facility] ab (Internal) : [address] 08/18/2019 C Diff Toxin STL - C. negative negative Fin [facility] Genes, Qual, Diff Coun try PCR, Stool ([facility]) Hospit al Lab (Internal) : [address] t 08/18/2019 Cryptosporid STL - Crypto negative negative Fi nal [place] ium Ag, sporidi [facility] Stool [facility] ab (Internal) : [address] 08/18/2019 Giardia STL - Giardi negative negative Final [place] Lamblia Ag, a Count ry EIA, Stool Hospit al Lab (Internal) : [address] 04/11/2019 CBC W/ Auto BLD - Wbc 7.3 10*3/uL 5.0-10.0 F inal North Diff 10*3/uL [facility] Hospital L ab (Internal) : [address] ? ? BLD Low Rbc 3.65 4.10-5.30 Final [place] 10*6/uL 10*6/uL [facility] Hospital L ab (Internal) : [address] ? ? BLD - Hgb 12.2 g/dL 12.0-16.0 Final Nort h g/dL [facility] Hospital L ab (Internal) : [address] ? ? BLD Low Hct 36.5 % 37.0-47.0 Final [facility] Hospital L ab (Internal) : [address] ? ? BLD High Mcv 100.0 fL 80.0-96.0 Final [facility] Hospital L ab (Internal) : [address] ? ? BLD High Mch 33.4 pg 26.0-32.0 Final [facility] Hospital L ab (Internal) : [address] ? ? BLD - Mchc 33.4 g/dL 31.0-35.0 Final Nort h g/dL [facility] Hospital L ab (Internal) : [address] ? ? BLD - Rdw 13.3 % 11.5-14.5 Final [facility] Hospital L ab (Internal) : [address] ? ? BLD - Plt 310 10*3/uL 130-450 Final Nort h 10*3/uL [facility] Hospital L ab (Internal) : [address] 04/11/2019 Differential BLD - Polys 65 % 40-75 % Final [facility] Blood Hospital L ab (Internal) : [address] ? ? BLD - Bands 0 % 0-5 % Final [facility] Hospital L ab (Internal) : [address] ? ? BLD - Lymphs 20 % 20-50 % Final [facility] Hospital L ab (Internal) : [address] ? ? BLD High [place] 12 % 2-10 % Final [facility] Hospital L ab (Internal) : [address] ? ? BLD - Eos 3 % 0-6 % Final [facility] L ab (Internal) : [address] ? ? BLD - Baso 0 % 0-1 % Final [facility] Hospital L ab (Internal) : [address] ? ? BLD - Atyp 0 % ? Final [facility] Hospital L ab (Internal) : [address] ? ? BLD - Plts, adequate adequate Final [facility] Hospital L ab (Internal) : [address] ? ? BLD - RBC normal normal Final [facility] Hospital L ab (Internal) : [address] 04/11/2019 Neutrophil BLD - Anc-ma 4.73 ? Final N orth Count, nual 10*3/uL [facility] Lab (Anc), Blood (Int ernal): [address] [facility] 04/11/2019 Folate, S - Folate 10.30 NG/mL 2.76-20.0 Fin al [place] Serum 0 NG/mL [facility] Hospital L ab (Internal) : [address] [facility] 04/11/2019 Vitamin B12, S - Vit 493.0 pg/mL 239.0-931 Final [place] Serum B12 .0 pg/mL [facility] L ab (Internal) : [address] [facility] 04/11/2019 Methylmalona S - Methyl 0.06 <=0.40 Final [place] te, QN, malonic nmol/mL nmol/mL Countr y Serum or Acid, Hospital Lab Plasma Qn, S (Internal) : [address] 03/11/2019 Neutrophil BLD - Anc-ma 4.42 ? Final N orth Count, nual 10*3/uL [facility] (Anc), Blood (Int ernal): [address] 03/11/2019 Differential BLD - Polys 67 % 40-75 % Final [place] , [facility], [facility] Blood Hospital L ab (Internal) : [address] ? ? BLD - Bands 0 % 0-5 % Final [facility] L ab (Internal) : [address] ? ? BLD - Lymphs 20 % 20-50 % Final [facility] Hospital L ab (Internal) : [address] ? ? BLD High [place] 11 % 2-10 % Final [facility] Hospital L ab (Internal) : [address] ? ? BLD - Eos 1 % 0-6 % Final [facility] L ab (Internal) : [address] t ? ? BLD - Baso 1 % 0-1 % Final [facility] L ab (Internal) : [address] ? ? BLD - Atyp 0 % ? Final [facility] L ab (Internal) : [address] t ? ? BLD - Plts, adequate adequate Final [facility] Hospital L ab (Internal) : [address] t ? ? BLD ABNORM RBC abnormal normal Final [facility] Hospital L ab (Internal) : [address] ? ? BLD - Macro occasional ? Final [facility] L ab (Internal) : [address] 03/11/2019 CBC W/ Auto BLD - Wbc 6.6 10*3/uL 5.0-10.0 F inal [place] Diff 10*3/uL [facility] Hospital L ab (Internal) : [address] t ? ? BLD Low Rbc 3.63 4.10-5.30 Final [place] 10*6/uL 10*6/uL [facility] Hospital L ab (Internal) : [address] ? ? BLD - Hgb 12.2 g/dL 12.0-16.0 Final Nort h g/dL [facility] L ab (Internal) : [address] ? ? BLD Low Hct 36.9 % 37.0-47.0 Final [facility] L ab (Internal) : [address] ? ? BLD High Mcv 101.7 fL 80.0-96.0 Final [facility] L ab (Internal) : [address] ? ? BLD High Mch 33.6 pg 26.0-32.0 Final [facility] L ab (Internal) : [address] ? ? BLD - Mchc 33.1 g/dL 31.0-35.0 Final Nort h g/dL [facility] Hospital L ab (Internal) : [address] ? ? BLD - Rdw 13.5 % 11.5-14.5 Final [facility] ([facility] : [address] t ? ? BLD - Plt 323 10*3/uL 130-450 Final Nort h 10*3/uL [facility] (Internal) : [address] 03/11/2019 CMP, Serum S - g/r 104 mg/dL 74-106 Final [facility] or Plasma mg/dL [facility] L [facility] (Internal) : [address] t ? ? S - Bun 13 mg/dL 7-17 Final [facility] mg/dL [facility] (Internal) : [address] ? ? S Low Crea 0.40 mg/dL 0.52-1.04 Final Nor th mg/dL [facility] (Internal) : [address] ? ? S - Ca 8.9 mg/dL 8.4-10.2 Final [facility] mg/dL [facility] (Internal) : [address] ? ? S Low Na 136 mmol/L 137-145 Final [facility] mmol/L [facility] (Internal) : [address] ? ? S - K 3.8 mmol/L 3.5-5.1 Final [facility] mmol/L [facility] (Internal) : [address] t ? ? S - Cl 100 mmol/L 98-107 Final [facility] mmol/L [facility] (Internal) : [address] t ? ? S High Tco2 32.0 mmol/L 22.0-30.0 Final No rth mmol/L [facility] (Internal) : [address] t ? ? S - Tp 6.6 g/dL 6.3-8.2 Final [facility] g/dL [facility] (Internal) : [address] ? ? S - Alb 3.8 g/dL 3.5-5.0 Final [facility] g/dL [facility] (Internal) : [address] ? ? S Low Tbil 0.1 mg/dL 0.2-1.3 Final [facility] mg/dL [facility] (Internal) : [address] t ? ? S - Alp 81 U/L 50-136 Final [place] U/L [facility] Hospital L ab (Internal) : [address] ? ? S - Alt <10 U/L 9-52 U/L Final [place] (Sgpt) [facility] Hospital L ab (Internal) : [address] ? ? S - Ast 20 U/L 14-36 U/L Final [place] (Sgot) [facility] Hospital L ab (Internal) : [address] 01/14/2019 Pathology TISS - Report results ? Final N orth Study below [facility] L ab (Internal) : [address] 01/01/2019 CBC W/ Auto BLD - Wbc 7.8 10*3/uL 5.0-10.0 F inal [place] Diff 10*3/uL [facility] Hospital L ab (Internal) : [address] ? ? BLD Low Rbc 3.74 4.10-5.30 Final [place] 10*6/uL 10*6/uL [facility] Hospital L ab (Internal) : [address] ? ? BLD - Hgb 12.7 g/dL 12.0-16.0 Final Nort h g/dL [facility] L ab (Internal) : [address] ? ? BLD - Hct 38.4 % 37.0-47.0 Final [facility] L ab (Internal) : [address] ? ? BLD High Mcv 102.7 fL 80.0-96.0 Final [facility] Hospital L ab (Internal) : [address] ? ? BLD High Mch 34.0 pg 26.0-32.0 Final [facility] Hospital L ab (Internal) : [address] ? ? BLD - Mchc 33.1 g/dL 31.0-35.0 Final Nort h g/dL [facility] Hospital L ab (Internal) : [address] ? ? BLD High Rdw 14.6 % 11.5-14.5 Final [facility] L ab (Internal) : [address] ? ? BLD - Plt 329 10*3/uL 130-450 Final Nort h 10*3/uL [facility] (Internal[facility] : [address] 01/01/2019 Lipase, S - Lip 83 U/L 23-300 Final [facility] Serum or U/L [facility] Plasma Hospital L ab (Internal) : [address] 01/01/2019 BMP, Serum S High g/r 108 mg/dL 74-106 Final [facility] or Plasma mg/dL [facility] (Internal) : [address] t ? ? S - Bun 8 mg/dL 7-17 Final [place] mg/dL [facility] Hospital L ab (Internal) : [address] ? ? S Low Crea 0.40 mg/dL 0.52-1.04 Final Nor th mg/dL [facility] Hospital L ab (Internal) : [address] ? ? S - Ca 9.2 mg/dL 8.4-10.2 Final [place] mg/dL [facility] Hospital L ab (Internal) : [address] ? ? S - Na 138 mmol/L 137-145 Final [place] mmol/L [facility] Hospital L ab (Internal) : [address] ? ? S - K 3.7 mmol/L 3.5-5.1 Final [place] mmol/L [facility] Hospital L ab (Internal) : [address] t ? ? S - Cl 102 mmol/L 98-107 Final [place] mmol/L [facility] Hospital L ab (Internal) : [address] ? ? S High Tco2 33.0 mmol/L 22.0-30.0 Final No rth mmol/L [facility] Hospital L ab (Internal) : [address] 01/01/2019 Hepatic S - Tbil 0.3 mg/dL 0.2-1.3 Final N orth Function mg/dL [facility], Serum Hosp ital Lab (Internal) : [address] ? ? S - Dbil 0.3 mg/dL 0.0-0.3 Final [place] mg/dL [facility] Hospital L ab (Internal) : [address] ? ? S - Alp 68 U/L 50-136 Final [place] U/L [facility] Hospital L ab (Internal) : [address] t ? ? S - Alt 14 U/L 9-52 U/L Final [place] (Sgpt) [facility] Hospital L ab (Internal) : [address] t ? ? S - Ast 21 U/L 14-36 U/L Final [place] (Sgot) [facility] Hospital L ab (Internal) : [address] ? ? S - Ggt 20 U/L 12-43 U/L Final [facility] L ab (Internal) : [address] t ? ? S - Tp 6.7 g/dL 6.3-8.2 Final [place] g/dL [facility] L ab (Internal) : [address] ? ? S - Alb 3.6 g/dL 3.5-5.0 Final [place] g/dL [facility] Hospital L ab (Internal) : [address] 01/01/2019 Prothrombin BLD - Pt 9.9 S 9.1-11.7 Final [facility] Hospital L ab (Internal) : [address] ? ? BLD - Inr 1.0 ? Final [facility] L ab (Internal) : [address] 01/01/2019 Troponin I, S - Trop <0.06 NG/mL 0.00-0.06 Final [place] Serum or NG/mL [facility] Plasma Hospital L ab (Internal) : [address] 01/01/2019 Partial BLD - APTT 24 s 22-35 s Final Nort h Thromboplast (Op) Coun try in Time Hospital Lab (Internal) : [address] 01/01/2019 Differential BLD - Polys 70 % 40-75 % Final [facility] Blood Hospital L ab (Internal) : [address] ? ? BLD - Bands 0 % 0-5 % Final [facility] Hospital L ab (Internal) : [address] ? ? BLD Low Lymphs 13 % 20-50 % Final [facility] L ab (Internal) : [address] ? ? BLD High [place] 11 % 2-10 % Final [facility] L ab (Internal) : [address] t ? ? BLD - Eos 4 % 0-6 % Final [facility] Hospital L ab (Internal) : [address] t ? ? BLD - Baso 1 % 0-1 % Final [facility] Hospital L ab (Internal) : [address] t ? ? BLD - Atyp 1 % ? Final [facility] Hospital L ab (Internal) : [address] t ? ? BLD - Plts, adequate adequate Final [facility] Hospital L ab (Internal) : [address] t ? ? BLD ABNORM RBC abnormal normal Final [facility] Morphol [facility] Hospital L ab (Internal) : [address] t ? ? BLD - Aniso small ? Final [facility] Hospital L ab (Internal) : [address] t ? ? BLD - Macro small ? Final [facility] Hospital L ab (Internal) : [address] 01/01/2019 Neutrophil BLD - Anc-ma 5.47 ? Final N orth Count, nual 10*3/uL [facility] (Anc), Blood (Int ernal): [address] 01/01/2019 Urinalysis, UR - UA-col yellow pale Final [place] Dipstick, or yellow [facility] Reflex Micro Hosp ital Lab (Internal) : [address] t ? ? UR - UA-angie clear clear Final [facility] L ab (Internal) : [address] t ? ? UR - UA-spe 1.010 1.003-1.0 Final [place] c Grav 35 [facility] Hospital L ab (Internal) : [address] t ? ? UR - UA-pH 7.5 [pH] 4.6-8.0 Final [place] [pH] [facility] Hospital L ab (Internal) : [address] t ? ? UR - UA-gama negative negative Final [facility] L ab (Internal) : [address] t ? ? UR - UA-nit negative negative Final [facility] Hospital L ab (Internal) : [address] t ? ? UR - UA-pro negative negative Final [facility] (Internal) : [address] t ? ? UR - UA-glu negative negative Final [place] c [facility] Hospital L ab (Internal) : [address] ? ? UR - UA-ket negative negative Final [place] one [facility] Hospital L ab (Internal) : [address] t ? ? UR - UA-uro normal normal Final [place] marcela [facility] Hospital L ab (Internal) : [address] ? ? UR - UA-marcela negative negative Final [place] i [facility] Hospital L ab (Internal) : [address] t ? ? UR - UA-blo negative negative Final [place] od [facility] Hospital L ab (Internal) : [address] 12/31/2018 Hepatic S - Tbil 0.4 mg/dL 0.2-1.3 Final N orth Function mg/dL [facility] Panel, Serum Hosp ital Lab (Internal) : [address] ? ? S - Dbil 0.3 mg/dL 0.0-0.3 Final [place] mg/dL [facility] Hospital L ab (Internal) : [address] ? ? S - Alp 56 U/L 50-136 Final [place] U/L [facility] Hospital L ab (Internal) : [address] ? ? S - Alt <10 U/L 9-52 U/L Final [place] (Sgpt) [facility] Hospital L ab (Internal) : [address] ? ? S - Ast 21 U/L 14-36 U/L Final [place] (Sgot) [facility] Hospital L ab (Internal) : [address] ? ? S - Ggt <15 U/L 12-43 U/L Final [facility] Hospital L ab (Internal) : [address] ? ? S - Tp 6.3 g/dL 6.3-8.2 Final [place] g/dL [facility] Hospital L ab (Internal) : [address] ? ? S - Alb 3.5 g/dL 3.5-5.0 Final [place] g/dL [facility] Hospital L ab (Internal) : [address] 12/31/2018 Lipase, S - Lip 75 U/L 23-300 Final [place] Serum or U/L [facility] Plasma Hospital L ab (Internal) : [address] 12/17/2018 C Diff Toxin STL - C. negative negative [facility] Genes, Qual, Diff Coun try PCR, Stool ([facility]) Hospit al Lab (Internal) : [address] 09/28/2018 T4, Free, S - Ft4 0.86 NG/dL 0.78-2.19 [facility] Serum NG/dL [facility] Hospital L ab (Internal) : [address] 09/28/2018 TSH, Serum S - Tsh 1.38 0.47-4.68 Final [facility] Plasma u[IU]/mL u[IU]/mL [facility] L ab (Internal) : [address] t 09/14/2018 Neutrophil BLD - Anc-ma 4.27 ? Final N orth Count, nual 10*3/uL [facility] Hospital Lab (Anc), Blood (Int ernal): [address] [place] 09/14/2018 Differential BLD - Polys 62 % 40-75 % Final [place] , [facility], [facility] Blood Hospital L ab (Internal) : [address] t ? ? BLD - Bands 0 % 0-5 % Final [facility] L ab (Internal) : [address] t ? ? BLD - Lymphs 20 % 20-50 % Final [facility] L ab (Internal) : [address] ? ? BLD High [place] 15 % 2-10 % Final [facility] L ab (Internal) : [address] t ? ? BLD - Eos 3 % 0-6 % Final [facility] L ab (Internal) : [address] t ? ? BLD - Baso 0 % 0-1 % Final [facility] L ab (Internal) : [address] t ? ? BLD - Atyp 0 % ? Final [facility] L ab (Internal) : [address] t ? ? BLD - Plts, adequate adequate Final [facility] Hospital L ab (Internal) : [address] t ? ? BLD ABNORM RBC abnormal normal Final [facility] Morphol [facility] Hospital L ab (Internal) : [address] t ? ? BLD - Macro moderate ? Final [facility] Hospital L ab (Internal) : [address] 09/14/2018 CMP, Serum S - g/r 106 mg/dL 74-106 Final [place] or Plasma mg/dL [facility] Hospital L ab (Internal) : [address] t ? ? S Low Bun 6 mg/dL 7-17 Final [place] mg/dL [facility] Hospital L ab (Internal) : [address] t ? ? S Low Crea 0.40 mg/dL 0.52-1.04 Final Nor th mg/dL [facility] Hospital L ab (Internal) : [address] t ? ? S - Ca 9.0 mg/dL 8.4-10.2 Final [place] mg/dL [facility] Hospital L ab (Internal) : [address] t ? ? S - Na 139 mmol/L 137-145 Final [place] mmol/L [facility] Hospital L ab (Internal) : [address] t ? ? S Low K 2.8 mmol/L 3.5-5.1 Final [place] mmol/L [facility] Hospital L ab (Internal) : [address] t ? ? S Low Cl 95 mmol/L 98-107 Final [place] mmol/L [facility] Hospital L ab (Internal) : [address] t ? ? S High Tco2 32.0 mmol/L 22.0-30.0 Final No rth mmol/L [facility] Hospital L ab (Internal) : [address] t ? ? S - Tp 6.4 g/dL 6.3-8.2 Final [place] g/dL [facility] Hospital L ab (Internal) : [address] t ? ? S - Alb 3.6 g/dL 3.5-5.0 Final [place] g/dL [facility] Hospital L ab (Internal) : [address] t ? ? S - Tbil 0.3 mg/dL 0.2-1.3 Final [place] mg/dL [facility] Hospital L ab (Internal) : [address] t ? ? S High Alp 162 U/L 50-136 Final [place] U/L [facility] Hospital L ab (Internal) : [address] t ? ? S High Alt 87 U/L 9-52 U/L Final [place] (Sgpt) [facility] Hospital L ab (Internal) : [address] t ? ? S High Ast 46 U/L 14-36 U/L Final [place] (Sgot) [facility] Hospital L ab (Internal) : [address] [place] 09/14/2018 CBC W/ Auto BLD - Wbc 6.9 10*3/uL 5.0-10.0 F inal [place] Diff 10*3/uL [facility] L ab (Internal) : [address] t ? ? BLD Low Rbc 3.78 4.10-5.30 Final [place] 10*6/uL 10*6/uL [facility] Hospital L ab (Internal) : [address] ? ? BLD - Hgb 12.9 g/dL 12.0-16.0 Final Nort h g/dL [facility] Hospital L ab (Internal) : [address] ? ? BLD - Hct 40.3 % 37.0-47.0 Final [facility] Hospital L ab (Internal) : [address] ? ? BLD High Mcv 106.6 fL 80.0-96.0 Final [facility] Hospital L ab (Internal) : [address] ? ? BLD High Mch 34.1 pg 26.0-32.0 Final [place] pg [facility] Hospital L ab (Internal) : [address] ? ? BLD - Mchc 32.0 g/dL 31.0-35.0 Final Nort h g/dL [facility] Hospital L ab (Internal) : [address] ? ? BLD - Rdw 13.6 % 11.5-14.5 Final [facility] Hospital L ab (Internal) : [address] ? ? BLD - Plt 297 10*3/uL 130-450 Final Nort h 10*3/uL [facility] Hospital L ab (Internal) : [address] 08/02/2018 Zinc, Serum S Low Zinc, 0.59 mcg/mL 0.66-1.10 Final [place] or Plasma S mcg/mL [facility] Hospital L ab (Internal) : [address] 07/23/2018 Prealbumin, S Low Prealb 15 mg/dL 20-40 Final [place] Serum umin mg/dL [facility] Hospital L ab (Internal) : [address] t 07/23/2018 Neutrophil BLD - Anc-ma 5.36 ? Final N orth Count, nual 10*3/uL [facility] Hospital Lab (Anc), Blood (Int ernal): [address] t 07/23/2018 Differential BLD - Polys 58 % 40-75 % Final [place] , [facility] Blood Hospital L ab (Internal) : [address] t ? ? BLD - Bands 0 % 0-5 % Final [facility] Hospital L ab (Internal) : [address] t ? ? BLD Low Lymphs 16 % 20-50 % Final [facility] L ab (Internal) : [address] t ? ? BLD High [place] 23 % 2-10 % Final [facility] Hospital L ab (Internal) : [address] t ? ? BLD - Eos 2 % 0-6 % Final [facility] Hospital L ab (Internal) : [address] t ? ? BLD - Baso 0 % 0-1 % Final [facility] Hospital L ab (Internal) : [address] t ? ? BLD - Atyp 0 % ? Final [facility] Hospital L ab (Internal) : [address] t ? ? BLD High Young 1 % 0-0 % Final [facility] Hospital L ab (Internal) : [address] ? ? BLD - Plts, adequate adequate Final [facility] Hospital L ab (Internal) : [address] t ? ? BLD ABNORM RBC abnormal normal Final [facility] Morphol [facility] og Hospital L ab (Internal) : [address] t ? ? BLD - Aniso moderate ? Final [facility] Hospital L ab (Internal) : [address] t ? ? BLD - Macro moderate ? Final [facility] Hospital L ab (Internal) : [address] 07/23/2018 Triglyceride S High Trig 159 mg/dL 10-150 Amanda l [place] s, Serum mg/dL [facility] Hospital L ab (Internal) : [address] 07/23/2018 Phosphorus, S - Phos 3.1 mg/dL 2.5-4.5 Amanda l [facility] Serum or mg/dL [facility] L ab (Internal) : [address] [facility] 07/23/2018 Magnesium, S Low mg 1.5 mg/dL 1.6-2.3 Final [place] QN, Serum or mg/dL Coun try Plasma Hospital L ab (Internal) : [address] [facility] 07/23/2018 CMP, Serum S High g/r 117 mg/dL 74-106 Final [place] or Plasma mg/dL [facility] L ab (Internal) : [address] t ? ? S - Bun 11 mg/dL 7-17 Final [place] mg/dL [facility] Hospital L ab (Internal) : [address] ? ? S Low Crea 0.30 mg/dL 0.52-1.04 Final [facility] th mg/dL [facility] L ab (Internal) : [address] t ? ? S - Ca 8.4 mg/dL 8.4-10.2 Final [facility] mg/dL [facility] L ab (Internal) : [address] t ? ? S - Na 138 mmol/L 137-145 Final [place] mmol/L [facility] Hospital L ab (Internal) : [address] t ? ? S Low K 3.0 mmol/L 3.5-5.1 Final [place] mmol/L [facility] Hospital L ab (Internal) : [address] t ? ? S - Cl 102 mmol/L 98-107 Final [place] mmol/L [facility] Hospital L ab (Internal) : [address] t ? ? S - Tco2 30.0 mmol/L 22.0-30.0 Final No rth mmol/L [facility] L ab (Internal) : [address] t ? ? S Low Tp 6.2 g/dL 6.3-8.2 Final [place] g/dL [facility] Hospital L ab (Internal) : [address] t ? ? S Low Alb 3.0 g/dL 3.5-5.0 Final [place] g/dL [facility] Hospital L ab (Internal) : [address] t ? ? S - Tbil 0.4 mg/dL 0.2-1.3 Final [place] mg/dL [facility] Hospital L ab (Internal) : [address] t ? ? S - Alp 108 U/L 50-136 Final [place] U/L [facility] Hospital L ab (Internal) : [address] t ? ? S - Alt 17 U/L 9-52 U/L Final [place] (Sgpt) [facility] Hospital L ab (Internal) : [address] ? ? S - Ast 24 U/L 14-36 U/L Final [place] (Sgot) [facility] Hospital L ab (Internal) : [address] t 07/23/2018 CBC W/ Auto BLD - Wbc 9.2 10*3/uL 5.0-10.0 F inal [place] Diff 10*3/uL [facility] L ab (Internal) : [address] t ? ? BLD Low Rbc 3.06 4.10-5.30 Final [place] 10*6/uL 10*6/uL [facility] Hospital L ab (Internal) : [address] t ? ? BLD Low Hgb 10.6 g/dL 12.0-16.0 Final Nort h g/dL [facility] Hospital L ab (Internal) : [address] t ? ? BLD Low Hct 32.7 % 37.0-47.0 Final [facility] Hospital L ab (Internal) : [address] ? ? BLD High Mcv 106.9 fL 80.0-96.0 Final [facility] Hospital L ab (Internal) : [address] t ? ? BLD High Mch 34.6 pg 26.0-32.0 Final [facility] Hospital L ab (Internal) : [address] ? ? BLD - Mchc 32.4 g/dL 31.0-35.0 Final Nort h g/dL [facility] Hospital L ab (Internal) : [address] t ? ? BLD High Rdw 17.4 % 11.5-14.5 Final [facility] Hospital L ab (Internal) : [address] t ? ? BLD - Plt 333 10*3/uL 130-450 Final Nort h 10*3/uL [facility] Hospital L ab (Internal) : [address] t 07/16/2018 Prealbumin, S Low Prealb 12 mg/dL 20-40 Final [place] Serum umin mg/dL [facility] Hospital L ab (Internal) : [address] t 07/16/2018 Neutrophil BLD - Anc-ma 5.47 ? Final N orth Count, nual 10*3/uL [facility] Hospital Lab (Anc), Blood (Int ernal): [address] t 07/16/2018 Differential BLD - Polys 63 % 40-75 % Final [facility] Blood Hospital L ab (Internal) : [address] t ? ? BLD - Bands 0 % 0-5 % Final [facility] Hospital L ab (Internal) : [address] t ? ? BLD - Lymphs 21 % 20-50 % Final [facility] L ab (Internal) : [address] t ? ? BLD High [place] 16 % 2-10 % Final [facility] L ab (Internal) : [address] t ? ? BLD - Eos 0 % 0-6 % Final [facility] L ab (Internal) : [address] t ? ? BLD - Baso 0 % 0-1 % Final [facility] L ab (Internal) : [address] t ? ? BLD - Atyp 0 % ? Final [facility] L ab (Internal) : [address] t ? ? BLD - Plts, adequate adequate Final [facility] Hospital L ab (Internal) : [address] t ? ? BLD ABNORM RBC abnormal normal Final [facility] Hospital L ab (Internal) : [address] t ? ? BLD - Aniso moderate ? Final [facility] L ab (Internal) : [address] t ? ? BLD - Macro small ? Final [facility] Hospital L ab (Internal) : [address] t ? ? BLD - Stomat small ? Final [facility] Hospital L ab (Internal) : [address] 07/16/2018 Triglyceride S High Trig 228 mg/dL 10-150 Amanda l [facility] s, Serum mg/dL [facility] ([facility] : [address] [facility] 07/16/2018 Phosphorus, S - Phos 4.2 mg/dL 2.5-4.5 Amanda l [facility] Serum or mg/dL [facility] (Internal) : [address] [facility] 07/16/2018 Magnesium, S Low mg 1.5 mg/dL 1.6-2.3 Final [place] QN, Serum or mg/dL [facility] (Internal) : [address] [facility] 07/16/2018 CMP, Serum S High g/r 121 mg/dL 74-106 Final [facility] or Plasma mg/dL [facility] (Internal) : [address] t ? ? S - Bun 11 mg/dL 7-17 Final [place] mg/dL [facility] L [facility] (Internal) : [address] t ? ? S Low Crea 0.40 mg/dL 0.52-1.04 Final Nor th mg/dL [facility] (Internal) : [address] t ? ? S - Ca 8.5 mg/dL 8.4-10.2 Final [place] mg/dL [facility] (Internal) : [address] t ? ? S - Na 137 mmol/L 137-145 Final [place] mmol/L [facility] (Internal) : [address] t ? ? S Low K 3.3 mmol/L 3.5-5.1 Final [place] mmol/L [facility] (Internal) : [address] t ? ? S - Cl 99 mmol/L 98-107 Final [place] mmol/L [facility] (Internal) : [address] t ? ? S High Tco2 31.0 mmol/L 22.0-30.0 Final No rth mmol/L [facility] ([facility]) : [address] t ? ? S Low Tp 6.0 g/dL 6.3-8.2 Final [place] g/dL [facility] (Internal) : [address] t ? ? S Low Alb 2.8 g/dL 3.5-5.0 Final [place] g/dL [facility] (Internal) : [address] t ? ? S - Tbil 0.2 mg/dL 0.2-1.3 Final [place] mg/dL [facility] (Internal) : [address] t ? ? S - Alp 132 U/L 50-136 Final [place] U/L [facility] (Internal) : [address] t ? ? S - Alt 24 U/L 9-52 U/L Final [place] (Sgpt) [facility] (Internal) : [address] t ? ? S - Ast 22 U/L 14-36 U/L Final [place] (Sgot) [facility] (Internal) : [address] leta 07/16/2018 CBC W/ Auto BLD - Wbc 8.7 10*3/uL 5.0-10.0 F inal [place] Diff 10*3/uL [facility] ([facility]) : [address] t ? ? BLD Low Rbc 3.25 4.10-5.30 Final [place] 10*6/uL 10*6/uL [facility] (Internal) : [address] t ? ? BLD Low Hgb 11.2 g/dL 12.0-16.0 Final Nort h g/dL [facility] (Internal) : [address] ? ? BLD Low Hct 34.0 % 37.0-47.0 Final [place] % [facility] (Internal) : [address] t ? ? BLD High Mcv 104.6 fL 80.0-96.0 Final [facility] L ab (Internal) : [address] ? ? BLD High Mch 34.5 pg 26.0-32.0 Final [place] pg [facility] (Internal) : [address] ? ? BLD - Mchc 32.9 g/dL 31.0-35.0 Final Nort h g/dL [facility] (Internal) : [address] t ? ? BLD High Rdw 18.5 % 11.5-14.5 Final [facility] Hospital L ab (Internal) : [address] t ? ? BLD - Plt 339 10*3/uL 130-450 Final Nort h 10*3/uL [facility] (Internal) : [address] t 07/02/2018 Prealbumin, S Low Prealb 7 mg/dL 20-40 Final [place] Serum umin mg/dL [facility] (Internal) : [address] t 07/02/2018 Neutrophil BLD - Anc-ma 3.62 ? Final N orth Count, nual 10*3/uL [facility] Hospital Lab (Anc), Blood (Int ernal): [address] t 07/02/2018 Differential BLD - Polys 51 % 40-75 % Final [facility] L ab (Internal) : [address] t ? ? BLD - Bands 0 % 0-5 % Final [facility] L ab (Internal) : [address] t ? ? BLD Low Lymphs 18 % 20-50 % Final [facility] L ab (Internal) : [address] t ? ? BLD High [place] 28 % 2-10 % Final [facility] L ab (Internal) : [address] t ? ? BLD - Eos 1 % 0-6 % Final [facility] (Internal) : [address] ? ? BLD High Baso 2 % 0-1 % Final [facility] L ab (Internal) : [address] t ? ? BLD - Atyp 0 % ? Final [facility] Hospital L ab (Internal) : [address] t ? ? BLD - Plts, adequate adequate Final [facility] L ab (Internal) : [address] t ? ? BLD ABNORM RBC abnormal normal Final [facility] L ab (Internal) : [address] t ? ? BLD - Aniso moderate ? Final [facility] L ab (Internal) : [address] t ? ? BLD - Hypo rare ? Final [facility] L ab (Internal) : [address] t ? ? BLD - Macro moderate ? Final [facility] L ab (Internal) : [address] t ? ? BLD - Polych occasional ? Final [place] rom [facility] (Internal) : [address] 07/02/2018 Magnesium, S Low mg 1.4 mg/dL 1.6-2.3 Final [place] QN, Serum or mg/dL [facility] (Internal) : [address] 07/02/2018 CMP, Serum S High g/r 127 mg/dL 74-106 Final [place] or Plasma mg/dL [facility] ([facility] : [address] t ? ? S - Bun 15 mg/dL 7-17 Final [place] mg/dL [facility] L [facility] (Internal) : [address] t ? ? S Low Crea 0.30 mg/dL 0.52-1.04 Final Nor th mg/dL [facility] ([facility]) : [address] t ? ? S Low Ca 8.1 mg/dL 8.4-10.2 Final [facility] mg/dL [facility] ([facility]) : [address] t ? ? S Low Na 131 mmol/L 137-145 Final [place] mmol/L [facility] L [facility] (Internal) : [address] t ? ? S Low K 2.8 mmol/L 3.5-5.1 Final [place] mmol/L [facility] L [facility] (Internal) : [address] t ? ? S Low Cl 89 mmol/L 98-107 Final [place] mmol/L [facility] L ab (Internal) : [address] t ? ? S High Tco2 38.0 mmol/L 22.0-30.0 Final No rth mmol/L [facility] ([facility]) : [address] t ? ? S Low Tp 5.7 g/dL 6.3-8.2 Final [place] g/dL [facility] L ab (Internal) : [address] t ? ? S Low Alb 2.6 g/dL 3.5-5.0 Final [facility] g/dL [facility] ([facility] : [address] t ? ? S - Tbil 0.2 mg/dL 0.2-1.3 Final [place] mg/dL [facility] L ab (Internal) : [address] ? ? S - Alp 125 U/L 50-136 Final [place] U/L [facility] L ab (Internal) : [address] ? ? S - Alt 28 U/L 9-52 U/L Final [place] (Sgpt) [facility] (Internal) : [address] ? ? S - Ast 24 U/L 14-36 U/L Final [place] (Sgot) [facility] L ab (Internal) : [address] 07/02/2018 Triglyceride S High Trig 168 mg/dL 10-150 Amanda l [place] s, Serum mg/dL [facility] L ab (Internal) : [address] 07/02/2018 Phosphorus, S - Phos 3.1 mg/dL 2.5-4.[address] [facility] Serum or mg/dL [facility] Hospital L ab (Internal) : [address] 07/02/2018 CBC W/ Auto BLD - Wbc 7.1 10*3/uL 5.0-10.0 F inal [place] Diff 10*3/uL [facility] L ab (Internal) : [address] [place] ? ? BLD Low Rbc 3.08 4.10-5.30 Final [place] 10*6/uL 10*6/uL [facility] L ab (Internal) : [address] leta ? ? BLD Low Hgb 10.4 g/dL 12.0-16.0 Final Nort h g/dL [facility] L ab (Internal) : [address] leta ? ? BLD Low Hct 32.1 % 37.0-47.0 Final [place] % [facility] L ab (Internal) : [address] ? ? BLD High Mcv 104.2 fL 80.0-96.0 Final [place] fL [facility] L ab (Internal) : [address] ? ? BLD High Mch 33.8 pg 26.0-32.0 Final [place] pg [facility] L ab (Internal) : [address] t ? ? BLD - Mchc 32.4 g/dL 31.0-35.0 Final Nort h g/dL [facility] L ab (Internal) : [address] ? ? BLD High Rdw 19.4 % 11.5-14.5 Final [facility] (Internal) : [address] ? ? BLD - Plt 348 10*3/uL 130-450 Final Nort h 10*3/uL [facility] L ab (Internal) : [address] 06/25/2018 Prealbumin, S Low Prealb 6 mg/dL 20-40 Final [place] Serum umin mg/dL [facility] L ab (Internal) : [address] 06/25/2018 Neutrophil BLD - Anc-ma 2.72 ? Final N orth Count, nual 10*3/uL [facility] Hospital Lab (Anc), Blood (Int ernal): [address] 06/25/2018 Differential BLD - Polys 53 % 40-75 % Final [facility] L ab (Internal) : [address] ? ? BLD - Bands 1 % 0-5 % Final [facility] L ab (Internal) : [address] t ? ? BLD - Lymphs 22 % 20-50 % Final [facility] L ab (Internal) : [address] ? ? BLD High [place] 21 % 2-10 % Final [facility] L ab (Internal) : [address] t ? ? BLD - Eos 1 % 0-6 % Final [facility] L ab (Internal) : [address] t ? ? BLD High Baso 2 % 0-1 % Final [facility] L ab (Internal) : [address] ? ? BLD - Atyp 0 % ? Final [facility] Hospital L ab (Internal) : [address] ? ? BLD - Plts, adequate adequate Final [facility] Hospital L ab (Internal) : [address] t ? ? BLD ABNORM RBC abnormal normal Final [facility] Morphol [facility] Hospital L ab (Internal) : [address] ? ? BLD - Aniso moderate ? Final [facility] Hospital L ab (Internal) : [address] ? ? BLD - Macro small ? Final [facility] L ab (Internal) : [address] 06/25/2018 CBC W/ Auto BLD - Wbc 5.0 10*3/uL 5.0-10.0 F inal [place] Diff 10*3/uL [facility] Hospital L ab (Internal) : [address] ? ? BLD Low Rbc 2.93 4.10-5.30 Final [place] 10*6/uL 10*6/uL [facility] L ab (Internal) : [address] ? ? BLD Low Hgb 9.9 g/dL 12.0-16.0 Final [place] g/dL [facility] L ab (Internal) : [address] ? ? BLD Low Hct 30.4 % 37.0-47.0 Final [facility] (Internal) : [address] ? ? BLD High Mcv 103.8 fL 80.0-96.0 Final [facility] Hospital L ab (Internal) : [address] ? ? BLD High Mch 33.8 pg 26.0-32.0 Final [facility] L ab (Internal) : [address] [place] ? ? BLD - Mchc 32.6 g/dL 31.0-35.0 [facility] L ab (Internal) : [address] [place] ? ? BLD High Rdw 20.0 % 11.5-14.5 Final [facility] ab (Internal) : [address] [place] ? ? BLD - Plt 245 10*3/uL 130-450 Final Nort h 10*3/uL [facility] Hospital L ab (Internal) : [address] 06/25/2018 Triglyceride S - Trig 105 mg/dL 10-150 Amanda l [place] s, Serum mg/dL [facility] L ab (Internal) : [address] 06/25/2018 Phosphorus, S - Phos 3.1 mg/dL 2.5-4.5 Amanda l [place] Serum or mg/dL [facility] L ab (Internal) : [address] t 06/25/2018 Magnesium, S - mg 1.6 mg/dL 1.6-2.3 Final [place] QN, Serum or mg/dL [facility] (Internal) : [address] t 06/25/2018 CMP, Serum S - g/r 102 mg/dL 74-106 Final [place] or Plasma mg/dL [facility] L ab (Internal) : [address] t ? ? S - Bun 8 mg/dL 7-17 Final [place] mg/dL [facility] L ab (Internal) : [address] t ? ? S Low Crea 0.30 mg/dL 0.52-1.04 Final [facility] th mg/dL [facility] L ab (Internal) : [address] t ? ? S - Ca 8.4 mg/dL 8.4-10.2 Final [place] mg/dL [facility] L ab (Internal) : [address] t ? ? S Low Na 133 mmol/L 137-145 Final [place] mmol/L [facility] L ab (Internal) : [address] t ? ? S Low K 3.1 mmol/L 3.5-5.1 Final [place] mmol/L [facility] L ab (Internal) : [address] t ? ? S Low Cl 90 mmol/L 98-107 Final [place] mmol/L [facility] L ab (Internal) : [address] t ? ? S CRITIC Tco2 40.0 mmol/L 22.0-30.0 Final No rth AL mmol/L [facility] L ab (Internal) : [address] t ? ? S Low Tp 6.2 g/dL 6.3-8.2 Final [place] g/dL [facility] L ab (Internal) : [address] t ? ? S Low Alb 2.9 g/dL 3.5-5.0 Final [place] g/dL [facility] L ab (Internal) : [address] t ? ? S - Tbil 0.2 mg/dL 0.2-1.3 Final [place] mg/dL [facility] L ab (Internal) : [address] t ? ? S - Alp 124 U/L 50-136 Final [place] U/L [facility] L ab (Internal) : [address] t ? ? S - Alt 24 U/L 9-52 U/L Final [place] (Sgpt) [facility] L ab (Internal) : [address] t ? ? S - Ast 20 U/L 14-36 U/L Final [place] (Sgot) [facility] L ab (Internal) : [address] t 06/18/2018 Prealbumin, S Low Prealb 12 mg/dL 20-40 Final [place] Serum umin mg/dL [facility] Hospital L ab (Internal) : [address] 06/18/2018 Neutrophil BLD - Anc-ma 4.59 ? Final N orth Count, nual 10*3/uL [facility] Hospital Lab (Anc), Blood (Int ernal): [address] 06/18/2018 Differential BLD High Polys 78 % 40-75 % Final [place] , [facility], [facility] Blood Hospital L ab (Internal) : [address] ? ? BLD High Bands 6 % 0-5 % Final [facility] L ab (Internal) : [address] t ? ? BLD Low Lymphs 4 % 20-50 % Final [facility] L ab (Internal) : [address] ? ? BLD High [place] 12 % 2-10 % Final [facility] L ab (Internal) : [address] t ? ? BLD - Eos 0 % 0-6 % Final [facility] L ab (Internal) : [address] t ? ? BLD - Baso 0 % 0-1 % Final [facility] Hospital L ab (Internal) : [address] t ? ? BLD - Atyp 0 % ? Final [facility] Hospital L ab (Internal) : [address] ? ? BLD - Plts, adequate adequate Final [facility] Hospital L ab (Internal) : [address] t ? ? BLD ABNORM RBC abnormal normal Final [place] AL Morphol [facility] Hospital L ab (Internal) : [address] t ? ? BLD - Aniso large ? Final [facility] Hospital L ab (Internal) : [address] t ? ? BLD - Macro moderate ? Final [facility] L ab (Internal) : [address] t ? ? BLD - Polych occasional ? Final [facility] Hospital L ab (Internal) : [address] t 06/18/2018 CBC W/ Auto BLD - Wbc 5.5 10*3/uL 5.0-10.0 F inal [place] Diff 10*3/uL [facility] Hospital L ab (Internal) : [address] t ? ? BLD Low Rbc 2.99 4.10-5.30 Final [place] 10*6/uL 10*6/uL [facility] Hospital L ab (Internal) : [address] t ? ? BLD Low Hgb 10.2 g/dL 12.0-16.0 Final Nort h g/dL [facility] Hospital L ab (Internal) : [address] t ? ? BLD Low Hct 30.7 % 37.0-47.0 Final [facility] L ab (Internal) : [address] t ? ? BLD High Mcv 102.7 fL 80.0-96.0 Final [facility] L ab (Internal) : [address] t ? ? BLD High Mch 34.1 pg 26.0-32.0 Final [facility] Hospital L ab (Internal) : [address] t ? ? BLD - Mchc 33.2 g/dL 31.0-35.0 Final Nort h g/dL [facility] Hospital L ab (Internal) : [address] t ? ? BLD High Rdw 21.0 % 11.5-14.5 Final [facility] L ab (Internal) : [address] t ? ? BLD - Plt 178 10*3/uL 130-450 Final Nort h 10*3/uL [facility] Hospital L ab (Internal) : [address] t 06/18/2018 Triglyceride S - Trig 89 mg/dL 10-150 Final [place] s, Serum mg/dL [facility] Hospital L ab (Internal) : [address] [facility] 06/18/2018 Phosphorus, S - Phos 3.3 mg/dL 2.5-4.5 Amanda l [place] Serum or mg/dL [facility] Plasma Hospital L ab (Internal) : [address] [facility] 06/18/2018 Magnesium, S - mg 1.9 mg/dL 1.6-2.3 Final [place] QN, Serum or mg/dL Coun try [facility] L ab (Internal) : [address] [facility] 06/18/2018 CMP, Serum S - g/r 103 mg/dL 74-106 Final [place] or Plasma mg/dL [facility] Hospital L ab (Internal) : [address] t ? ? S High Bun 20 mg/dL 7-17 Final [place] mg/dL [facility] Hospital L ab (Internal) : [address] t ? ? S Low Crea 0.20 mg/dL 0.52-1.04 Final [facility] th mg/dL [facility] Hospital L ab (Internal) : [address] t ? ? S Low Ca 7.9 mg/dL 8.4-10.2 Final [place] mg/dL [facility] Hospital L ab (Internal) : [address] t ? ? S Low Na 131 mmol/L 137-145 Final [place] mmol/L [facility] Hospital L ab (Internal) : [address] t ? ? S - K 3.8 mmol/L 3.5-5.1 Final [place] mmol/L [facility] Hospital L ab (Internal) : [address] t ? ? S Low Cl 94 mmol/L 98-107 Final [place] mmol/L [facility] Hospital L ab (Internal) : [address] t ? ? S High Tco2 35.0 mmol/L 22.0-30.0 Final No rth mmol/L [facility] Hospital L ab (Internal) : [address] t ? ? S Low Tp 5.7 g/dL 6.3-8.2 Final [place] g/dL [facility] L ab (Internal) : [address] t ? ? S Low Alb 2.9 g/dL 3.5-5.0 Final [place] g/dL [facility] L ab (Internal) : [address] t ? ? S - Tbil 0.2 mg/dL 0.2-1.3 Final [place] mg/dL [facility] Hospital L ab (Internal) : [address] t ? ? S - Alp 108 U/L 50-136 Final [place] U/L [facility] Hospital L ab (Internal) : [address] ? ? S - Alt 42 U/L 9-52 U/L Final [place] (Sgpt) [facility] L ab (Internal) : [address] ? ? S - Ast 24 U/L 14-36 U/L Final [place] (Sgot) [facility] Hospital L ab (Internal) : [address] 06/11/2018 Partial BLD - PTT 24 s 22-35 s Final Nort h Thromboplast (Ip) Coun try in Time Hospital Lab (Internal) : [address] 06/11/2018 D-dimer, PLASMA High Dimq 0.85 mg/L 0.00-0.50 Final [place] Quant, mg/L [facility] Plasma Hospital L ab (Internal) : [address] 06/11/2018 Prothrombin BLD - Pt 10.1 S 9.1-11.7 Final [facility] Hospital L ab (Internal) : [address] ? ? BLD - Inr 1.0 ? Final [facility] Hospital L ab (Internal) : [address] 06/11/2018 Urinalysis, UR - UA-col yellow pale Final [place] Dipstick, or yellow [facility] Lab (Internal) : [address] t ? ? UR - UA-angie clear clear Final [place] ear [facility] Hospital L ab (Internal) : [address] ? ? UR - UA-spe 1.025 1.003-1.0 Final [place] c Grav 35 [facility] Hospital L ab (Internal) : [address] ? ? UR - UA-pH 6.5 [pH] 4.6-8.0 Final [place] [pH] [facility] Hospital L ab (Internal) : [address] ? ? UR - UA-gama negative negative Final [place] k Est [facility] Hospital L ab (Internal) : [address] t ? ? UR - UA-nit negative negative Final [place] rite [facility] L ab (Internal) : [address] t ? ? UR ABNORM UA-pro 2+ negative Final [place] AL t [facility] L ab (Internal) : [address] t ? ? UR - UA-glu negative negative Final [place] c [facility] L ab (Internal) : [address] t ? ? UR - UA-ket negative negative Final [place] one [facility] L ab (Internal) : [address] t ? ? UR - UA-uro normal normal Final [place] marcela [facility] L ab (Internal) : [address] t ? ? UR - UA-marcela negative negative Final [place] i [facility] L ab (Internal) : [address] t ? ? UR ABNORM UA-blo moderate negative Final [place] AL od [facility] L ab (Internal) : [address] t 06/11/2018 Troponin I, S - Trop <0.06 NG/mL 0.00-0.06 Final [facility] or NG/mL [facility] Hospital L ab (Internal) : [address] 06/11/2018 Urinalysis, UR - UA-WBC 0-3 [hpf] 0-3 [hpf] F inal [place] Microscopic Count Hospital L ab (Internal) : [address] t ? ? UR ABNORM UA-RBC 5-10 [hpf] 0-2 [hpf] Final No rth AL [facility] L ab (Internal) : [address] ? ? UR - UA-nolan none seen none seen Final Nor th teria [hpf] [hpf] [facility] L ab (Internal) : [address] ? ? UR ABNORM UA-epi few [hpf] none seen Final Nor th AL thelial [hpf] [facility] ab (Internal) : [address] ? ? UR ABNORM UA-muc few [hpf] none seen Final Nor th AL us [hpf] [facility] ab (Internal) : [address] 06/11/2018 Prealbumin, S - Prealb 26 mg/dL 20-40 Final [place] Serum umin mg/dL [facility] Hospital L ab (Internal) : [address] t 06/11/2018 Neutrophil BLD - Anc-ma 5.00 ? Final N orth Count, nual 10*3/uL [facility] Hospital Lab (Anc), Blood (Int ernal): [address] t 06/11/2018 Differential BLD High Polys 82 % 40-75 % Final [place] , [facility], [facility] Blood Hospital L ab (Internal) : [address] ? ? BLD - Bands 0 % 0-5 % Final [facility] L ab (Internal) : [address] ? ? BLD Low Lymphs 4 % 20-50 % Final [facility] L ab (Internal) : [address] ? ? BLD High [place] 14 % 2-10 % Final [facility] L ab (Internal) : [address] ? ? BLD - Eos 0 % 0-6 % Final [facility] L ab (Internal) : [address] ? ? BLD - Baso 0 % 0-1 % Final [facility] L ab (Internal) : [address] ? ? BLD - Atyp 0 % ? Final [facility] L ab (Internal) : [address] ? ? BLD - Plts, adequate adequate Final [facility] Hospital L ab (Internal) : [address] ? ? BLD ABNORM RBC abnormal normal Final [facility] Morphol [facility] Hospital L ab (Internal) : [address] ? ? BLD - Aniso moderate ? Final [facility] Hospital L ab (Internal) : [address] t 06/11/2018 Triglyceride S - Trig 119 mg/dL 10-150 Amanda l [place] s, Serum mg/dL [facility] Hospital L ab (Internal) : [address] t 06/11/2018 Phosphorus, S - Phos 4.0 mg/dL 2.5-4.[address] [facility] Serum or mg/dL [facility] Plasma Hospital L ab (Internal) : [address] t 06/11/2018 Magnesium, S - mg 2.2 mg/dL 1.6-2.3 Final [facility] QN, Serum or mg/dL Coun try Plasma Hospital L ab (Internal) : [address] t 06/11/2018 CMP, Serum S - g/r 91 mg/dL 74-106 Final [facility] or Plasma mg/dL [facility] ([facility] : [address] t ? ? S High Bun 23 mg/dL 7-17 Final [facility] mg/dL [facility] Hospital L ab (Internal) : [address] t ? ? S Low Crea 0.30 mg/dL 0.52-1.04 Final [facility] mg/dL [facility] L [facility] (Internal) : [address] t ? ? S - Ca 8.6 mg/dL 8.4-10.2 Final [facility] mg/dL [facility] Hospital L ab (Internal) : [address] t ? ? S Low Na 132 mmol/L 137-145 Final [facility] mmol/L [facility] Hospital L ab (Internal) : [address] t ? ? S - K 3.6 mmol/L 3.5-5.1 Final [facility] mmol/L [facility] Hospital L ab (Internal) : [address] t ? ? S Low Cl 95 mmol/L 98-107 Final [facility] mmol/L [facility] Hospital L ab (Internal) : [address] t ? ? S High Tco2 34.0 mmol/L 22.0-30.0 Final No rth mmol/L [facility] (Internal) : [address] t ? ? S - Tp 6.5 g/dL 6.3-8.2 Final [facility] g/dL [facility] Hospital L ab (Internal) : [address] t ? ? S - Alb 3.5 g/dL 3.5-5.0 Final [facility] g/dL [facility] ([facility] : [address] t ? ? S - Tbil 0.4 mg/dL 0.2-1.3 Final [facility] mg/dL [facility] Hospital L ab (Internal) : [address] t ? ? S - Alp 134 U/L 50-136 Final [facility] U/L [facility] Hospital L ab (Internal) : [address] ? ? S High Alt 96 U/L 9-52 U/L Final [facility] (Sgpt) [facility] Hospital L ab (Internal) : [address] t ? ? S - Ast 32 U/L 14-36 U/L Final [facility] (Sgot) [facility] L ab (Internal) : [address] 06/11/2018 CBC W/ Auto BLD - Wbc 6.1 10*3/uL 5.0-10.0 F inal [facility] Diff 10*3/uL [facility] Hospital L ab (Internal) : [address] leta ? ? BLD Low Rbc 3.52 4.10-5.30 Final [facility] 10*6/uL 10*6/uL [facility] Hospital L ab (Internal) : [address] ? ? BLD Low Hgb 11.9 g/dL 12.0-16.0 Final Nort h g/dL [facility] Hospital L ab (Internal) : [address] ? ? BLD Low Hct 34.8 % 37.0-47.0 Final [facility] L ab (Internal) : [address] leta ? ? BLD High Mcv 98.9 fL 80.0-96.0 Final [facility] L ab (Internal) : [address] ? ? BLD High Mch 33.8 pg 26.0-32.0 Final [facility] L ab (Internal) : [address] ? ? BLD - Mchc 34.2 g/dL 31.0-35.0 Final Nort h g/dL [facility] L ab (Internal) : [address] ? ? BLD High Rdw 21.7 % 11.5-14.5 Final [facility] L ab (Internal) : [address] ? ? BLD - Plt 180 10*3/uL 130-450 Final Nort h 10*3/uL [facility] L ab (Internal) : [address] 06/05/2018 Prealbumin, S - Prealb tnp ? Final [facility] Serum [facility] Hospital L ab (Internal) : [address] 06/04/2018 CBC W/ Auto BLD Low Wbc 4.0 10*3/uL 5.0-10.0 F inal [facility] Diff 10*3/uL [facility] Hospital L ab (Internal) : [address] ? ? BLD Low Rbc 3.35 4.10-5.30 Final [facility] 10*6/uL 10*6/uL [facility] Hospital L ab (Internal) : [address] ? ? BLD Low Hgb 11.6 g/dL 12.0-16.0 Final Nort h g/dL [facility] Hospital L ab (Internal) : [address] ? ? BLD Low Hct 34.1 % 37.0-47.0 Final [facility] Hospital L ab (Internal) : [address] ? ? BLD High Mcv 101.8 fL 80.0-96.0 Final [facility] Hospital L ab (Internal) : [address] ? ? BLD High Mch 34.6 pg 26.0-32.0 Final [facility] L ab (Internal) : [address] ? ? BLD - Mchc 34.0 g/dL 31.0-35.0 Final Nort h g/dL [facility] Hospital L ab (Internal) : [address] ? ? BLD High Rdw 22.5 % 11.5-14.5 Final [facility] Hospital L ab (Internal) : [address] ? ? BLD Low Plt 117 10*3/uL 130-450 Final Nort h 10*3/uL [facility] Hospital L ab (Internal) : [address] 06/04/2018 Differential BLD High Polys 76 % 40-75 % Final [facility] Hospital L ab (Internal) : [address] ? ? BLD - Bands 2 % 0-5 % Final [facility] Hospital L ab (Internal) : [address] ? ? BLD Low Lymphs 5 % 20-50 % Final [facility] Hospital L ab (Internal) : [address] ? ? BLD High [place] 14 % 2-10 % Final [facility] Hospital L ab (Internal) : [address] ? ? BLD - Eos 1 % 0-6 % Final [facility] Hospital L ab (Internal) : [address] ? ? BLD - Baso 1 % 0-1 % Final [facility] Hospital L ab (Internal) : [address] ? ? BLD - Atyp 0 % ? Final [facility] Hospital L ab (Internal) : [address] ? ? BLD - Myelo 1 % ? Final [facility] Hospital L ab (Internal) : [address] ? ? BLD ABNORM Plts, low adequate Final [facility] Est. [facility] Hospital L ab (Internal) : [address] ? ? BLD - RBC normal normal Final [facility] : [address] 06/04/2018 Neutrophil BLD - Anc-ma 3.13 ? Final N orth Count, nual 10*3/uL [facility] Hospital Lab (Anc), Blood (Int ernal): [address] 06/04/2018 CMP, Serum S High g/r 151 mg/dL 74-106 Final [facility] or Plasma mg/dL [facility] (Internal) : [address] ? ? S High Bun 24 mg/dL 7-17 Final [facility] mg/dL [facility] Hospital L ab (Internal) : [address] ? ? S Low Crea 0.30 mg/dL 0.52-1.04 Final Nor th mg/dL [facility] Hospital L ab (Internal) : [address] ? ? S Low Ca 8.1 mg/dL 8.4-10.2 Final [facility] mg/dL [facility] Hospital L ab (Internal) : [address] ? ? S Low Na 130 mmol/L 137-145 Final [facility] mmol/L [facility] Hospital L ab (Internal) : [address] ? ? S - K 4.3 mmol/L 3.5-5.1 Final [facility] mmol/L [facility] Hospital L ab (Internal) : [address] t ? ? S Low Cl 90 mmol/L 98-107 Final [facility] mmol/L [facility] Hospital L ab (Internal) : [address] t ? ? S High Tco2 36.0 mmol/L 22.0-30.0 Final No rth mmol/L [facility] Hospital L ab (Internal) : [address] t ? ? S Low Tp 5.6 g/dL 6.3-8.2 Final [place] g/dL [facility] Hospital L ab (Internal) : [address] t ? ? S Low Alb 2.7 g/dL 3.5-5.0 Final [place] g/dL [facility] Hospital L ab (Internal) : [address] t ? ? S - Tbil 0.2 mg/dL 0.2-1.3 Final [facility] mg/dL [facility] Hospital L ab (Internal) : [address] t ? ? S - Alp 93 U/L 50-136 Final [facility] U/L [facility] L ab (Internal) : [address] t ? ? S - Alt 41 U/L 9-52 U/L Final [facility] (Sgpt) [facility] L ab (Internal) : [address] t ? ? S High Ast 47 U/L 14-36 U/L Final [facility] (Sgot) [facility] Hospital L ab (Internal) : [address] 06/04/2018 Magnesium, S - mg 1.9 mg/dL 1.6-2.3 Final [facility] QN, Serum or mg/dL Coun [facility] Plasma Hospital L ab (Internal) : [address] 06/04/2018 Phosphorus, S - Phos 4.0 mg/dL 2.5-4.5 Amanda l [facility] Serum or mg/dL [facility] L ab (Internal) : [address] 06/04/2018 Triglyceride S High Trig 214 mg/dL 10-150 Amanda l [facility] s, Serum mg/dL [facility] L ab (Internal) : [address] 03/31/2018 Pap Test, MISC - Hpv see report ? Final [facility] Lab (Internal[facility] : [address] ? ? MISC - Pap see report ? Final [facility] L ab (Internal) : [address] ? ? MISC - Report (added) ? Corrected [facility] results [facility] below Hospital L ab (Internal) : [address] 03/16/2018 Bun (Blood S - Bun 10 mg/dL 7-17 Final North Urea mg/dL [facility] Nitrogen), Hospit al Lab Serum or (Interna l): Plasma [address] 03/16/2018 Creatinine, S Low Crea 0.40 mg/dL 0.52-1.04 F inal [facility] Serum or mg/dL [facility] L ab (Internal) : [address] 03/16/2018 Bun (Blood S - Bun 10 mg/dL 7-17 Final [facility] Urea mg/dL [facility] Nitrogen), Hospit al Lab Serum or (Interna l): Plasma [address] 09/08/2017 Venipuncture BLD ? Venpn* ? ? Final [facility] L [facility] (Internal) : [address] 09/08/2017 BMP, Serum PLASMA High g/r 158 mg/dL 74-106 Final [facility] or Plasma mg/dL [facility] L [facility] (Internal) : [address] ? ? PLASMA Low Bun 6 mg/dL 7-17 Final [facility] mg/dL [facility] (Internal) : [address] ? ? PLASMA Low Crea 0.40 mg/dL 0.52-1.04 Final Nor th mg/dL [facility] L [facility] (Internal) : [address] ? ? PLASMA ? Ca 9.6 mg/dL 8.4-10.2 Final [facility] mg/dL [facility] (Internal) : [address] ? ? PLASMA ? Na 138 mmol/L 137-145 Final [facility] mmol/L [facility] (Internal) : [address] ? ? PLASMA ? K 3.7 mmol/L 3.5-5.1 Final [facility] mmol/L [facility] L [facility] (Internal) : [address] ? ? PLASMA Low Cl 95 mmol/L 98-107 Final [facility] mmol/L [facility] (Internal) : [address] ? ? PLASMA High Tco2 35.0 mmol/L 22.0-30.0 Final No rth mmol/L [facility] Hospital L ab (Internal) : [address] 09/07/2017 Venipuncture BLD ? Venpn* ? ? Final [facility] Hospital L ab (Internal) : [address] 09/07/2017 Influenza NASAL ? Final microbiolog ? Final [facility] (A+B) Ag, y results Coun try Qual, Rapid, Hosp ital Lab Nose (Internal) : [address] 09/07/2017 Neutrophil BLD ? Anc-ma 7.42 ? Final N orth Count, nual 10*3/uL [facility] Absolute Hospital Lab (Anc), Blood (Int ernal): [address] 09/07/2017 Differential BLD ? Polys 58 % 40-75 % Final [facility], [facility] Blood Hospital L ab (Internal) : [address] ? ? BLD ? Bands 0 % 0-5 % Final [facility] L ab (Internal) : [address] ? ? BLD ? Lymphs 21 % 20-50 % Final [facility] L ab (Internal) : [address] t ? ? BLD High [place] 17 % 2-10 % Final [facility] Hospital L ab (Internal) : [address] ? ? BLD ? Eos 2 % 0-6 % Final [facility] L ab (Internal) : [address] ? ? BLD High Baso 2 % 0-1 % Final [facility] Hospital L ab (Internal) : [address] ? ? BLD ? Atyp 0 % ? Final [facility] Hospital L ab (Internal) : [address] ? ? BLD ? Plts, adequate adequate Final [facility] Hospital L ab (Internal) : [address] ? ? BLD ? RBC normal normal [facility] L [facility] (Internal[facility] : [address] 09/07/2017 CMP, Serum S High g/r 138 mg/dL 74-106 Final [facility] or Plasma mg/dL [facility] Hospital L ab (Internal) : [address] t ? ? S ? Bun 9 mg/dL 7-17 Final [facility] mg/dL [facility] (Internal) : [address] t ? ? S Low Crea 0.40 mg/dL 0.52-1.04 Final Nor th mg/dL [facility] L [facility] (Internal) : [address] t ? ? S ? Ca 9.5 mg/dL 8.4-10.2 Final [facility] mg/dL [facility] (Internal) : [address] t ? ? S ? Na 137 mmol/L 137-145 Final [facility] mmol/L [facility] Hospital L ab (Internal) : [address] t ? ? S ? K 3.8 mmol/L 3.5-5.1 Final [facility] mmol/L [facility] (Internal) : [address] t ? ? S Low Cl 97 mmol/L 98-107 Final [facility] mmol/L [facility] Hospital L ab (Internal) : [address] t ? ? S High Tco2 34.0 mmol/L 22.0-30.0 Final No rth mmol/L [facility] L [facility] (Internal) : [address] t ? ? S ? Tp 7.5 g/dL 6.3-8.2 Final [facility] g/dL [facility] L [facility] (Internal) : [address] t ? ? S ? Alb 4.1 g/dL 3.5-5.0 Final [facility] g/dL [facility] (Internal) : [address] t ? ? S ? Tbil 0.2 mg/dL 0.2-1.3 Final [facility] mg/dL [facility] L [facility] (Internal) : [address] t ? ? S ? Alp 110 U/L 50-136 Final [facility] U/L [facility] Hospital L ab (Internal) : [address] t ? ? S High Alt 69 U/L 9-52 U/L Final [facility] (Sgpt) [facility] Hospital L ab (Internal) : [address] t ? ? S High Ast 48 U/L 14-36 U/L Final [facility] (Sgot) [facility] Hospital L ab (Internal) : [address] t 09/07/2017 CBC W/ Auto BLD High Wbc 12.8 5.0-10.0 Final [facility] Diff 10*3/uL 10*3/uL [facility] L ab (Internal) : [address] t ? ? BLD ? Rbc 4.40 4.10-5.30 Final [facility] 10*6/uL 10*6/uL [facility] L ab (Internal) : [address] t ? ? BLD ? Hgb 14.0 g/dL 12.0-16.0 Final Nort h g/dL [facility] L ab (Internal) : [address] t ? ? BLD ? Hct 43.4 % 37.0-47.0 Final [facility] L ab (Internal) : [address] t ? ? BLD High Mcv 98.6 fL 80.0-96.0 Final [facility] L ab (Internal) : [address] t ? ? BLD ? Mch 31.8 pg 26.0-32.0 Final [facility] L ab (Internal) : [address] t ? ? BLD ? Mchc 32.3 g/dL 31.0-35.0 [facility] L ab (Internal) : [address] t ? ? BLD ? Rdw 12.9 % 11.5-14.5 Final [facility] L ab (Internal) : [address] t ? ? BLD ? Plt 303 10*3/uL 130-450 Final Nort h 10*3/uL [facility] L ab (Internal) : [address] t 02/25/2017 Venipuncture BLD ? Venpn* ? ? Final [facility] L ab (Internal) : [address] t 02/25/2017 Venipuncture BLD ? Venpn* ? ? Final [facility] L ab (Internal) : [address] t 02/25/2017 Rf BLD ? Rf negative < negative Final [facility] (Rheumatoid 10 [IU]/mL < 10 C ountry Factor), [IU]/mL Hospita l Lab Serum (Internal) : [address] t 02/25/2017 Cyclic S ? Cyclic <15.6 U <20.0 Final Nort h Citrullinate Citrull (negative Country d Peptide inated ) U Hospita l Lab Ab, Quant Peptide (Inter nal): Immunoassay, Ab, S [address] 02/25/2017 AUGUSTIN S ? AUGUSTIN negative negat Final Nort h (Antinuclear Interpr Cou ntry Antibodies) etation Hosp ital Lab Screen, (Internal ): Serum [address] 02/25/2017 ESR BLD ? Esr 1 mm/h 0-30 mm/h Final Nor th (Erythrocyte Coun try Sedimentatio Hosp ital Lab n Rate), (Interna l): Blood [address] 02/25/2017 Lipid Panel, S High Chol 209 mg/dL 50-200 Amanda l [facility] Serum mg/dL [facility] L ab (Internal) : [address] ? ? S ? Trig 72 mg/dL 10-150 Final [facility] mg/dL [facility] L ab (Internal) : [address] ? ? S High Hdl 79 mg/dL 40-60 Final [facility] mg/dL [facility] L ab (Internal) : [address] ? ? S ? Ldl 116 mg/dL 0-130 Final [facility] mg/dL [facility] L ab (Internal) : [address] 02/15/2017 Venipuncture BLD ? Venpn* ? ? Final [facility] L ab (Internal) : [address] 02/15/2017 Neutrophil BLD ? Anc-ma 5.61 ? Final N orth Count, nual 10*3/uL [facility] Lab (Anc), Blood (Int ernal): [address] 02/15/2017 Differential BLD ? Polys 57 % 40-75 % Final [facility] Blood Hospital L ab (Internal) : [address] ? ? BLD ? Bands 0 % 0-5 % Final [facility] L ab (Internal) : [address] ? ? BLD ? Lymphs 29 % 20-50 % Final [facility] L ab (Internal) : [address] ? ? BLD ? [place] 9 % 2-10 % Final [facility] (Internal) : [address] t ? ? BLD ? Eos 4 % 0-6 % Final [facility] Hospital L ab (Internal) : [address] t ? ? BLD ? Baso 1 % 0-1 % Final [facility] Hospital L ab (Internal) : [address] t ? ? BLD ? Atyp 0 % ? Final [facility] Hospital L ab (Internal) : [address] t ? ? BLD ? Plts, adequate adequate Final [facility] Est. [facility] Hospital L ab (Internal) : [address] t ? ? BLD ? RBC normal normal Final [facility] (Internal) : [address] 02/15/2017 CK (Creatine S ? Cpk 34 U/L 30-135 Final [facility] Kinase), U/L [facility] Total, Serum Hosp ital Lab (Internal) : [address] 02/15/2017 Troponin I, S ? Trop <0.06 NG/mL 0.00-0.06 Final [facility] Serum or NG/mL [facility] Plasma Hospital L ab (Internal) : [address] 02/15/2017 CMP, Serum S ? g/r 97 mg/dL 74-106 Final [facility] or Plasma mg/dL [facility] Hospital L ab (Internal) : [address] t ? ? S ? Bun 9 mg/dL 7-17 Final [facility] mg/dL [facility] Hospital L ab (Internal) : [address] t ? ? S Low Crea 0.50 mg/dL 0.52-1.04 Final Nor th mg/dL [facility] Hospital L ab (Internal) : [address] t ? ? S ? Ca 9.0 mg/dL 8.4-10.2 Final [facility] mg/dL [facility] Hospital L ab (Internal) : [address] t ? ? S ? Na 137 mmol/L 137-145 Final [facility] mmol/L [facility] L ab (Internal) : [address] t ? ? S ? K 3.8 mmol/L 3.5-5.1 Final [facility] mmol/L [facility] L ab (Internal) : [address] t ? ? S ? Cl 104 mmol/L 98-107 Final [facility] mmol/L [facility] L ab (Internal) : [address] t ? ? S ? Tco2 27.0 mmol/L 22.0-30.0 Final No rth mmol/L [facility] L ab (Internal) : [address] t ? ? S ? Tp 7.0 g/dL 6.3-8.2 Final [facility] g/dL [facility] L ab (Internal) : [address] t ? ? S ? Alb 4.0 g/dL 3.5-5.0 Final [facility] g/dL [facility] L ab (Internal) : [address] t ? ? S ? Tbil 0.3 mg/dL 0.2-1.3 Final [facility] mg/dL [facility] L ab (Internal) : [address] t ? ? S ? Alp 64 U/L 50-136 Final [facility] U/L [facility] L ab (Internal) : [address] t ? ? S ? Alt 29 U/L 9-52 U/L Final [facility] (Sgpt) [facility] L ab (Internal) : [address] t ? ? S ? Ast 17 U/L 14-36 U/L Final [facility] (Sgot) [facility] Hospital L ab (Internal) : [address] t 02/15/2017 CBC W/ Auto BLD ? Wbc 9.9 10*3/uL 5.0-10.0 F inal [facility] Diff 10*3/uL [facility] L ab (Internal) : [address] t ? ? BLD ? Rbc 4.45 4.10-5.30 Final [facility] 10*6/uL 10*6/uL [facility] L ab (Internal) : [address] t ? ? BLD ? Hgb 14.3 g/dL 12.0-16.0 Final Nort h g/dL [facility] L ab (Internal) : [address] t ? ? BLD ? Hct 42.0 % 37.0-47.0 Final [facility] % [facility] L ab (Internal) : [address] t ? ? BLD ? Mcv 94.4 fL 80.0-96.0 Final [facility] L ab (Internal) : [address] ? ? BLD High Mch 32.1 pg 26.0-32.0 Final [facility] pg [facility] L ab (Internal) : [address] ? ? BLD ? Mchc 34.0 g/dL 31.0-35.0 Final Nort h g/dL [facility] L ab (Internal) : [address] ? ? BLD ? Rdw 13.0 % 11.5-14.5 Final [facility] % [facility] L ab (Internal) : [address] ? ? BLD ? Plt 308 10*3/uL 130-450 Final [facility] 10*3/uL [facility] L ab (Internal) : [address] Past Encounters 11/10/2019 Fibromyalgia Cristina Sagastume MANAGER [employer]: [address] [place] [phone], Ph. 10/12/2019 Acute Maxillary Sinusitis; Fibromyalgia; Diarrhea Wilner Espinoza PA: [address] [place] [phone], Ph. 08/10/2019 Gynecologic Examination; Screening Mammo graphy Jd Galicia MD: [address] [place] [phone], Ph. 05/24/2019 Chronic Obstructive Lung Disease; Diarrh ea; Sprain of Deltoid Ligament of Ankle BERE Jacobson: [address] [place] [phone], Ph. 04/11/2019 Active or Passive Immunization; Neuropat hy; Chronic Diarrhea BERE Jacobson: [address] [place] [phone], Ph. Social History Tobacco Smoking Status Current Every Day Smoker Notes: le ss than 1/2-1 ppd Vaccine List Vaccine Type influenza, injectable, quadrivalent 05/12/2019?0.5 mL influenza, injectable, quadrivalent, pre servative free 06/08/2018?0.5 mL Plan of Care Reminders Provider Appointments None ? ? recorded. Lab None ? ? recorded. Referral None ? ? recorded. Procedures None ? ? recorded. Surgeries None ? ? recorded. Imaging None ? ? recorded. Vitals 11/10/2019 12:40PM Acute 40 Height Weight BMI Blood Pressure 175.26 cm 52.39 kg 17.1 kg/m2 160/88 mm[Hg] 10/12/2019 10:20AM Same Day 20 Height Weight BMI Blood Pressure 175.26 cm 51.75 kg 16.8 kg/m2 132/92 mm[Hg] 08/10/2019 10:10AM E 20 Height Weight BMI Blood Pressure 175.26 cm 49.17 kg 16 kg/m2 120/70 mm[Hg] 05/24/2019 01:40PM Follow Up 20 Height Weight BMI Blood Pressure 175.26 cm 50.94 kg 16.6 kg/m2 130/80 mm[Hg] 04/11/2019 03:40PM Acute 20 Height Weight BMI Blood Pressure 175.26 cm 51.37 kg 16.7 kg/m2 116/74 mm[Hg] 01/26/2019 09:30AM Office 15 Height 175.26 cm 01/12/2019 09:30AM Office 15 Height Blood Pressure 175.26 cm 112/70 mm[Hg] 12/31/2018 12:40PM Acute 40 Height Weight BMI Blood Pressure 175.26 cm 52.3 kg 17 kg/m2 132/80 mm[Hg] 12/03/2018 08:00AM Acute 20 Height Weight BMI Blood Pressure 175.26 cm 51.71 kg 16.8 kg/m2 130/90 mm[Hg] 09/28/2018 08:00AM Follow Up 40 Height Weight BMI Blood Pressure 175.26 cm 54.2 kg 17.6 kg/m2 142/82 mm[Hg] 07/12/2018 01:00PM Follow Up 20 Height Weight BMI Blood Pressure 175.26 cm 50.35 kg 16.4 kg/m2 108/62 mm[Hg] 06/08/2018 01:20PM Follow Up 40 Height Weight BMI Blood Pressure 175.26 cm 51.37 kg 16.7 kg/m2 122/80 mm[Hg] 05/12/2018 04:20PM Follow Up 40 Height Weight BMI Blood Pressure 175.26 cm 55.93 kg 18.2 kg/m2 140/80 mm[Hg] 03/31/2018 02:20PM New Patient 30 Height Weight BMI Blood Pressure 175.26 cm 62.6 kg 20.4 kg/m2 136/80 mm[Hg] 03/05/2018 12:30PM Office 30 Height Weight BMI Blood Pressure 177.8 cm 63 kg 19.9 kg/m2 136/78 mm[Hg] 03/03/2018 10:20AM Acute 20 Height Weight BMI Blood Pressure 177.8 cm 63.37 kg 20 kg/m2 138/92 mm[Hg] 11/25/2017 Weight Blood Pressure 64.32 kg 140/90 mm[Hg] 09/22/2017 Weight Blood Pressure 65.36 kg 116/72 mm[Hg] 09/01/2017 Weight Blood Pressure 64 kg 130/80 mm[Hg] 07/21/2017 Weight Blood Pressure 64.46 kg 130/90 mm[Hg] 06/09/2017 Weight Blood Pressure 66.27 kg 136/92 mm[Hg] 05/19/2017 Weight Blood Pressure 64.86 kg 118/92 mm[Hg] 04/07/2017 Weight Blood Pressure 63.64 kg 142/82 mm[Hg] 02/17/2017 Weight Blood Pressure 59.96 kg 132/80 mm[Hg] 01/09/2017 Weight Blood Pressure 60.78 kg 152/84 mm[Hg] 10/08/2016 Weight Blood Pressure 58.97 kg 130/80 mm[Hg] 09/23/2016 Weight Blood Pressure 61.05 kg 118/72 mm[Hg] 09/18/2016 Weight Blood Pressure 59.96 kg 138/82 mm[Hg] 08/06/2016 Weight Blood Pressure 60.28 kg 162/104 mm[Hg] 07/15/2016 Weight Blood Pressure 59.06 kg 146/98 mm[Hg] 05/02/2016 Height Weight Blood Pressure 171.45 cm 57.33 kg 162/84 mm[Hg] 11/30/2015 Blood Pressure (1) 130/84 mm[Hg] (2) 120/78 mm[Hg] 07/23/2015 Weight Blood Pressure 58.47 kg 124/80 mm[Hg] 03/16/2015 Height Weight Blood Pressure 177.8 cm 63.96 kg 140/72 mm[Hg] 01/21/2013 Height Weight Blood Pressure 177.8 cm 63.96 kg 120/85 mm[Hg]
[2020-08-24 13:42] LABS: Abs Immature Grans 0.04 10^3/uL (0.0-0.06); Absolute Basophil Count 0.11 10^3/uL (0.0-0.2); Absolute Eosinophil Count 0.34 10^3/uL (0.0-0.7); Absolute Lymphocyte Count 2.25 10^3/uL (1.2-3.4); Absolute Monocyte Count 1.06 10^3/uL (0.1-0.8); Absolute Neutrophil Count 5.99 10^3/uL (1.2-6.7); Basophils % 1.1; Eosinophils % 3.5; HCT 39.9 % (36.0-46.0); HGB 12.9 g/dL (11.2-15.7); Immature Grans % 0.4; MCH 33.2 pg (27.0-33.0); MCHC 32.3 % (32.0-36.0); MCV 102.6 fL (80-95); MPV 9.8 fL (8.0-11.0); Monocytes % 10.8; Neutrophils % 61.2; Nucleated RBC 0 %; Platelet Count 451 10^3/uL (130-400); RBC 3.89 10^6/uL (3.93-5.22); RDW-SD 48.8 fL; WBC 9.79 10^3/uL (4.4-10.8)
[2020-08-24 13:57] LABS: ALT 24 U/L (14-59); AST 13 U/L (15-37); Albumin 3.3 g/dL (3.4-5.0); Alkaline Phosphatase 140 U/L (46-116); Anion Gap 6.5 mmol/L (3-11); BUN 6 mg/dL (7-18); Bilirubin, Total 0.3 mg/dL (0.2-1.0); CO2 31.5 mmol/L (21.0-32.0); CREATININE 0.53 mg/dL (0.55-1.02); Calcium 8.9 mg/dL (8.5-10.1); Chloride 101 mmol/L (98-107); Glucose 97 mg/dL (74-106); Potassium 3.7 mmol/L (3.5-5.1); Sodium 139 mmol/L (136-145); Total Protein 7.6 g/dL (6.4-8.2)
== END 2020-09-06 23:59 | disposition home or self-care (01) ==
LOC: INF 13:25
PROVIDERS: PCP Internal Medicine; Visit Provider Internal Medicine Hematology & Oncology
DX: C21.0 Malignant neoplasm of anus, unspecified (principal)
CPT/HCPCS: 36415; 80053; 85025

== ENCOUNTER 2021-09-17 19:01 | Outpatient (REF) | payer BC, SELFPAY ==
[2021-09-17 15:29] LABS: HCT 34.3 % (36.0-46.0); MCH 31.3 pg (27.0-33.0); MCHC 32.1 % (32.0-36.0); MCV 97.4 fL (80-95); MPV 9.7 fL (8.0-11.0); Platelet Count 549 10^3/uL (130-400); RBC 3.52 10^6/uL (3.93-5.22); RDW 14.1 % (11.7-14.6); RDW-SD 50.5 fL; WBC 14.62 10^3/uL (4.4-10.8)
[2021-09-17 16:20] LABS: ALT 15 U/L (14-59); AST 14 U/L (15-37); Albumin 2.6 g/dL (3.4-5.0); Alkaline Phosphatase 149 U/L (46-116); Anion Gap 6.6 mmol/L (3-11); BUN 9 mg/dL (7-18); Bilirubin, Total 0.2 mg/dL (0.2-1.0); CO2 34.4 mmol/L (21.0-32.0); CREATININE 0.5 mg/dL (0.55-1.02); Calcium 8.6 mg/dL (8.5-10.1); Chloride 95 mmol/L (98-107); Glucose 100 mg/dL (74-106); Sodium 136 mmol/L (136-145); Total Protein 6.3 g/dL (6.4-8.2)
[2021-09-17 16:31] LABS: Lipase 23 U/L (73-393)
== END 2021-09-17 19:02 | disposition home or self-care (01) ==
LOC: NCHCN 19:01
PROVIDERS: PCP Internal Medicine; Visit Provider Physician Assistant
DX: R19.7 Diarrhea, unspecified (principal)
CPT/HCPCS: 80053; 83690; 85027